=== PATIENT | female | born 1945 | race Caucasian/White ===

== ENCOUNTER → 2018-04-16 15:36 | Outpatient (CLI) | payer MEDICARE, MEDICAID, SELFPAY ==
--- NOTE | 2018-04-16 15:38 | CT_ITS ---
CT head/brain wo con HISTORY: Syncope ITS.REASON: PH SYNCOPE ORDERING PHYSICIAN: Brad Mir MD PATIENT AGE: 72 years COMPARISON: None TECHNIQUE: Axial images obtained without contrast. Brain and bone windows reviewed. All CT scans at the facility use one or more dose reduction, viz: automated exposure control, ma/kV adjustment per patient size (including targeted exams where dose is matched to indication, i.e. head), or iterative reconstruction technique. FINDINGS: There is motion artifact present despite performing the exam with helical technique. There is diffuse generalized atrophy. Encephalomalacia changes are present in the right temporal lobe and left frontal region and right parietal area. There is moderate enlargement of the lateral ventricles which may be due to volume loss from atrophy. The third and fourth ventricles are not significantly enlarged. No midline shift or mass effect is evident. No acute intracranial hemorrhage. IMPRESSION: 1. No acute finding. 2. Atrophy with ventriculomegaly and multiple areas of encephalomalacia
== END ==
PROVIDERS: PCP Internal Medicine Adolescent Medicine; Visit Provider Internal Medicine Adolescent Medicine
DX: R55 Syncope and collapse (principal)
CPT/HCPCS: 70450

== ENCOUNTER → 2020-06-16 07:46 | Outpatient (CLI) | payer MEDICARE, MEDICAID, SELFPAY ==
[2020-06-16 14:19] LABS: Chloride 109 mmol/L (98-107); Potassium 4.2 mmoL/L (3.5-5.1); Sodium 143 mmol/L (136-145)
[2020-06-16 14:21] LABS: Alanine Aminotransferase 11 U/L (12-78); Alkaline Phosphatase 91 U/L (38-126); Aspartate Amino Transferase 19 U/L (14-36); Bilirubin,Total 0.4 mg/dl (0.2-1.3); Blood Urea Nitrogen 15 mg/dl (7-17); Estimated Glomerular Filt Rate 82 ml/min (>60); GFR (African American) 99 ML/MIN (>60)
[2020-06-16 14:22] LABS: Albumin Level 3.9 g/dl (3.5-5.0); Albumin/Globulin Ratio 1.6 (1.1-1.8); Anion Gap 12.2 mEq/L (5-15); Calcium 9.6 mg/dl (8.4-10.2); Carbon Dioxide 26 mmol/L (22.0-30.0); Chol/HDL Ratio 3.6 (1-3.5); Cholesterol 173 mg/dl (140-200); Globulin 2.5 g/dL (1.3-3.2); Glucose 83 mg/dl (74-100); HDL Cholesterol 48 mg/dl (40-60); Total Protein,Serum 6.4 g/dl (6.3-8.2); Triglycerides 68 mg/dl (30-150); VLDL Cholesterol 14 mg/dL (0-40)
[2020-06-16 14:33] LABS: Direct LDL Cholesterol 101.29 mg/dL (100-129)
[2020-06-16 14:36] LABS: Basophils # 0.1 K/mm3 (0-0.2); Basophils % 0.7 % (0.1-2.0); Eosinophils # 0.2 K/mm3 (0.0-0.4); Hematocrit 40.5 % (37.0-47.0); Hemoglobin 13.1 g/dL (12.2-16.2); Lymphocytes # 2.9 K/mm3 (0.7-4.5); Lymphocytes % 38.8 % (10-50); Mean Corpuscular HGB Conc 32.3 g/dL (31.8-35.4); Mean Corpuscular Hemoglobin 31.4 pg (27.0-31.2); Mean Platelet Volume 10.3 fl (7.4-10.4); Monocytes # 0.5 K/mm3 (0.1-1.0); Monocytes % 6.5 % (1.7-9.3); Neutrophils # 3.8 K/mm3 (1.8-7.8); Neutrophils % 51.1 % (37.0-80.0); Platelet Count 198 K/mm3 (142-424); Red Blood Count 4.17 M/mm3 (4.20-5.40); Red Cell Distribution Width 13.4 % (11.5-17.5); White Blood Count 7.3 K/mm3 (4.8-10.8)
== END ==
PROVIDERS: Visit Provider Nurse Practitioner Family
DX: E78.5 Hyperlipidemia, unspecified (principal)
CPT/HCPCS: 36415; 80053; 80061; 85025

== ENCOUNTER → 2020-10-20 08:32 | Outpatient (CLI) | payer MEDICARE, MEDICAID, SELFPAY ==
[2020-10-20 10:40] LABS: Basophils # 0.1 K/mm3 (0-0.2); Basophils % 1.1 % (0.1-2.0); Eosinophils # 0.1 K/mm3 (0.0-0.4); Eosinophils % 1.6 % (0.1-12.0); Hematocrit 42.9 % (37.0-47.0); Hemoglobin 13.5 g/dL (12.2-16.2); Lymphocytes # 2.8 K/mm3 (0.7-4.5); Lymphocytes % 36.1 % (10-50); Mean Corpuscular HGB Conc 31.5 g/dL (31.8-35.4); Mean Corpuscular Hemoglobin 31.9 pg (27.0-31.2); Mean Corpuscular Volume 101.5 fl (81-99); Mean Platelet Volume 9.8 fl (7.4-10.4); Monocytes # 0.4 K/mm3 (0.1-1.0); Monocytes % 4.8 % (1.7-9.3); Neutrophils # 4.4 K/mm3 (1.8-7.8); Neutrophils % 56.4 % (37.0-80.0); Platelet Count 175 K/mm3 (142-424); Red Blood Count 4.23 M/mm3 (4.20-5.40); Red Cell Distribution Width 13.7 % (11.5-17.5); White Blood Count 7.9 K/mm3 (4.8-10.8)
[2020-10-20 11:18] LABS: Chloride 111 mmol/L (98-107); Potassium 4.4 mmoL/L (3.5-5.1); Sodium 148 mmol/L (136-145)
[2020-10-20 11:20] LABS: Alanine Aminotransferase 11 U/L (12-78); Aspartate Amino Transferase 21 U/L (14-36); Blood Urea Nitrogen 21 mg/dl (7-17); Estimated Glomerular Filt Rate 61 ml/min (>60); GFR (African American) 74 ML/MIN (>60)
[2020-10-20 11:21] LABS: Albumin Level 3.9 g/dl (3.5-5.0); Albumin/Globulin Ratio 1.4 (1.1-1.8); Alkaline Phosphatase 95 U/L (38-126); Anion Gap 12.4 mEq/L (5-15); Bilirubin,Total 0.4 mg/dl (0.2-1.3); Calcium 9.3 mg/dl (8.4-10.2); Carbon Dioxide 29 mmol/L (22.0-30.0); Chol/HDL Ratio 4.3 (1-3.5); Cholesterol 188 mg/dl (140-200); Globulin 2.8 g/dL (1.3-3.2); Glucose 73 mg/dl (74-100); HDL Cholesterol 44 mg/dl (40-60); Total Protein,Serum 6.7 g/dl (6.3-8.2); Triglycerides 104 mg/dl (30-150); VLDL Cholesterol 21 mg/dL (0-40)
[2020-10-20 11:32] LABS: Direct LDL Cholesterol 108.24 mg/dL (100-129)
== END ==
PROVIDERS: Visit Provider Nurse Practitioner Family
DX: E78.5 Hyperlipidemia, unspecified (principal)
CPT/HCPCS: 36415; 80053; 80061; 85025

== ENCOUNTER → 2020-12-14 07:22 | Outpatient (CLI) | payer MEDICARE, MEDICAID, SELFPAY ==
[2020-12-14 13:51] LABS: Basophils # 0.1 K/mm3 (0-0.2); Basophils % 0.4 % (0.1-2.0); Eosinophils # 0.1 K/mm3 (0.0-0.4); Eosinophils % 0.4 % (0.1-12.0); Hematocrit 43.2 % (37.0-47.0); Hemoglobin 13.5 g/dL (12.2-16.2); Lymphocytes # 1.3 K/mm3 (0.7-4.5); Lymphocytes % 5.7 % (10-50); Mean Corpuscular HGB Conc 31.4 g/dL (31.8-35.4); Mean Corpuscular Hemoglobin 31.8 pg (27.0-31.2); Mean Corpuscular Volume 101.4 fl (81-99); Mean Platelet Volume 10.2 fl (7.4-10.4); Monocytes # 0.8 K/mm3 (0.1-1.0); Monocytes % 3.6 % (1.7-9.3); Neutrophils # 19.9 K/mm3 (1.8-7.8); Platelet Count 229 K/mm3 (142-424); Red Blood Count 4.26 M/mm3 (4.20-5.40); Red Cell Distribution Width 14.1 % (11.5-17.5); White Blood Count 22.1 K/mm3 (4.8-10.8)
[2020-12-14 14:13] LABS: Chloride 111 mmol/L (98-107); Potassium 5.1 mmoL/L (3.5-5.1); Sodium 147 mmol/L (136-145)
[2020-12-14 14:15] LABS: Alanine Aminotransferase 31 U/L (12-78); Aspartate Amino Transferase 68 U/L (14-36); Blood Urea Nitrogen 41 mg/dl (7-17); Estimated Glomerular Filt Rate 34 ml/min (>60); GFR (African American) 41 ML/MIN (>60)
[2020-12-14 14:16] LABS: Albumin Level 3.4 g/dl (3.5-5.0); Albumin/Globulin Ratio 1.2 (1.1-1.8); Alkaline Phosphatase 99 U/L (38-126); Anion Gap 15.1 mEq/L (5-15); Bilirubin,Total 0.4 mg/dl (0.2-1.3); Calcium 9.2 mg/dl (8.4-10.2); Carbon Dioxide 26 mmol/L (22.0-30.0); Globulin 2.9 g/dL (1.3-3.2); Glucose 119 mg/dl (74-100); Hemoglobin A1C 8.2 % (4.0-6.0); MANUAL DIFFERENTIAL MANUAL DIFFERENTIAL (MANUAL DIFF); Total Protein,Serum 6.3 g/dl (6.3-8.2)
[2020-12-14 14:25] LABS: Lymphocytes % 3 % (10-50); Monocytes % 5 % (2-9); Neutrophils % 92 % (42-76); Total Cells Counted 100
[2020-12-14 14:27] LABS: Hypochromasia 2+; Macrocytosis 1+; Platelet Estimate Normal
[2020-12-15 07:34] LABS: Microscopic, Urine URINE MICROSCOPIC (MICROSCOPIC)
[2020-12-15 14:19] LABS: Appearance,Urine CLEAR (Clear); Bilirubin,Urine Negative (Negative); Blood, Urine 1+ (Negative); Color,Urine YELLOW (Yellow); Glucose,Urine (UA) Negative (Negative); Ketones,Urine Negative (Negative); Leukocyte Esterase,Urine Negative (Negative); Nitrate,Urine Negative (Negative); PH,Urine 5.5 (5.0-8.5); Protein,Urine 1+ (Negative); Specific Gravity, Urine 1.025 (1.005-1.030); Urobilinogen,Urine 0.2 EU/dl (0.2)
[2020-12-15 15:11] LABS: Bacteria,Urine 4+ /lpf
== END ==
PROVIDERS: Nurse Practitioner Family; Visit Provider Internal Medicine Adolescent Medicine
DX: D72.829 Elevated white blood cell count, unspecified (principal); R82.90 Unspecified abnormal findings in urine; Z79.899 Other long term (current) drug therapy; E78.5 Hyperlipidemia, unspecified
CPT/HCPCS: 36415; 80053; 81001; 83036; 85007; 85025; 87086

== ENCOUNTER → 2020-12-22 11:29 | Outpatient (CLI) | payer MEDICARE, MEDICAID, SELFPAY ==
[2020-12-22 12:05] LABS: Basophils # 0.1 K/mm3 (0-0.2); Basophils % 0.5 % (0.1-2.0); Eosinophils # 0.3 K/mm3 (0.0-0.4); Eosinophils % 1.3 % (0.1-12.0); Hematocrit 48.5 % (37.0-47.0); Hemoglobin 14.6 g/dL (12.2-16.2); Lymphocytes # 2.6 K/mm3 (0.7-4.5); Lymphocytes % 10.9 % (10-50); Mean Corpuscular HGB Conc 30.2 g/dL (31.8-35.4); Mean Corpuscular Hemoglobin 31.5 pg (27.0-31.2); Mean Corpuscular Volume 104.4 fl (81-99); Mean Platelet Volume 9.8 fl (7.4-10.4); Monocytes # 0.6 K/mm3 (0.1-1.0); Monocytes % 2.5 % (1.7-9.3); Neutrophils # 20.6 K/mm3 (1.8-7.8); Neutrophils % 84.8 % (37.0-80.0); Platelet Count 396 K/mm3 (142-424); Red Blood Count 4.65 M/mm3 (4.20-5.40); Red Cell Distribution Width 14.8 % (11.5-17.5); White Blood Count 24.3 K/mm3 (4.8-10.8)
[2020-12-22 12:22] LABS: MANUAL DIFFERENTIAL MANUAL DIFFERENTIAL (MANUAL DIFF)
[2020-12-22 13:12] LABS: Potassium 4.2 mmoL/L (3.5-5.1)
[2020-12-22 13:14] LABS: Blood Urea Nitrogen 46 mg/dl (7-17); Estimated Glomerular Filt Rate 29 ml/min (>60); GFR (African American) 35 ML/MIN (>60)
[2020-12-22 13:15] LABS: Alanine Aminotransferase 60 U/L (12-78); Albumin Level 3.6 g/dl (3.5-5.0); Albumin/Globulin Ratio 1.1 (1.1-1.8); Alkaline Phosphatase 125 U/L (38-126); Aspartate Amino Transferase 61 U/L (14-36); Bilirubin,Total 0.4 mg/dl (0.2-1.3); Calcium 9.4 mg/dl (8.4-10.2); Carbon Dioxide 24 mmol/L (22.0-30.0); Globulin 3.2 g/dL (1.3-3.2); Glucose 193 mg/dl (74-100); Total Protein,Serum 6.8 g/dl (6.3-8.2)
[2020-12-22 13:21] LABS: Anion Gap 17.2 mEq/L (5-15)
[2020-12-22 13:25] LABS: Chloride 137 mmol/L (98-107); Sodium 174 mmol/L (136-145)
[2020-12-22 14:06] LABS: Lymphocytes % 16 % (10-50); Monocytes % 4 % (2-9); Neutrophils % 80 % (42-76); Total Cells Counted 100
[2020-12-22 14:07] LABS: Hypochromasia 1+; Macrocytosis 2+; Platelet Estimate Normal
== END ==
PROVIDERS: Visit Provider Nurse Practitioner Family
DX: R79.9 Abnormal finding of blood chemistry, unspecified (principal)
CPT/HCPCS: 80053; 85007; 85025

== ENCOUNTER 2020-12-24 13:51 | Inpatient (IN) | payer MEDICARE, MEDICAID, SELFPAY ==
[2020-12-24] VITALS (10 sets, daily range): BP systolic 92–157; BP diastolic 47–95; PULSE 78–113; RESP 18–22; TEMP 36.7–37.5; O2SAT 91–100; BMI 24.7; BMI 19.8
--- NOTE | 2020-12-24 13:56 | HMH.EDGENADL ---
ED Disposition Clinical Impression: Hypernatremia, Acute respiratory failure with hypoxia Disposition: Admitted As Inpatient Condition on Discharge: Critical Time of Disposition: 15:13 - Critical Care Critical Care Time: Yes Attestation: On , the high probability of a clinically significant, sudden or life threatening deterioration of the following system(s) required my full and direct attention, intervention and personal management. The time I documented below is in addition to time spent performing reported procedures but includes the following listed in this critical care notation. Total Critical Care Time: 35 Vital system(s) involved:: Metabolic Failure, Renal Failure My critical care processes included: Assessment & monitoring of V/S, Initial and Re-exams, Data Review/Interpretation, Coordinating Care, Medication Orders and management, Documentation Medical Decision Making - Medical Records Medical records reviewed: Yes: I reviewed the patient's medical records. - Osvaldo Inquiry Pt receiving controlled substance: No Vital Signs: 12/24/20 13:48 Temperature 98.4 F Temperature Source Oral Pulse Rate [Left Radial] 78 Respiratory Rate 18 Blood Pressure [Right Arm] 129/74 Blood Pressure Mean [Right Arm] 92 Blood Pressure Source [Right Arm] Automatic Cuff Blood Pressure Position [Right Arm] Sitting 02 Sat by Pulse Oximetry 91 L Oxygen Delivery Method Nasal Cannula - Lab Data Lab results reviewed: Yes: I reviewed the patient's lab results. Lab Results 12/24/20 14:02: WBC 22.7 H*, RBC 4.78, Hgb 14.9, Hct 51.3 H, MCV 107.3 H, MCH 31.1, MCHC 29.0 L, RDW 14.8, Plt Count 330, MPV 10.6 H, Neut % (Auto) 87.2 H, Lymph % (Auto) 8.2 L, [place] % (Auto) 2.9, Eos % (Auto) 1.3, Baso % (Auto) 0.5, Neut # (Auto) 19.8 H, Lymph # (Auto) 1.9, [place] # (Auto) 0.7, Eos # (Auto) 0.3, Baso # (Auto) 0.1, Total Counted 100, Neutrophils % (Manual) 85 H, Band Neutrophils % 2.0, Lymphocytes % (Manual) 11, Monocytes % (Manual) 1 L, Eosinophils % (Manual) 1, Platelet Estimate Normal, Hypochromasia 2+, Microcytosis 2+ 12/24/20 14:02: Sodium 173 H*, Potassium 3.8, Chloride 135 H, Carbon Dioxide 27, Anion Gap 14.8, BUN 23 H D, Creatinine 1.10 H D, Estimated Creat Clear 42, Estimated GFR 48 L, Est GFR ( Amer) 58 L D, Glucose 131 H, Calcium 9.3, Total Bilirubin 0.5, AST 94 H D, ALT 55, Alkaline Phosphatase 127 H, Troponin I 0.08 H, Total Protein 8.0, Albumin 3.8, Globulin 4.2 H, Albumin/Globulin Ratio 0.9 L 12/24/20 14:02: NT-Pro-B Natriuret Pep 1820 H 12/24/20 14:02: Procalcitonin 0.600 Result diagrams: 12/24/20 14:02 12/24/20 14:02 Orders (Tests/Meds): ED MEDICATIONS Generic Name Dose Route Start Last Admin Trade Name Freq PRN Reason Stop Dose Admin Dextrose 1,000 mls @ 200 mls/hr 12/24/20 14:45 Dext 5% In Water 1000mls IV 01/23/21 14:44 .Q5H [facility] ORDERS Category Date Time Status Rapid PCR Covid and Flu A/B Stat Lab 12/24/20 14:20 Received Urinalysis and Microscopic Stat Lab 12/24/20 13:58 Ordered - Radiology Data #1 Image(s): Chest Image Reviewed: Yes I reviewed the patient's radiology results Preliminary Findings: Normal/NAD No significant finding on chest x-ray, limited by position. Medical Decision Narrative: 75yo F evaluated for hypoxia. Laboratory studies reveal severe hypernatremia. Initially thought to be an error but the patient had blood work completed 2 days ago that showed hyponatremia to be equivocal to today's finding. Started on D5W at 200 an hour based on her weight. Creatinine is reasonable. Glucose is 131. Patient does have a white blood cell count of 22, this could be secondary to her suspected pneumonia or inflammatory from her hyponatremia. Patient's chest x-ray is not terribly impressive. Her BNP is elevated at 1820 and her troponin is elevated as well. EKG is still pending. Case discussed with Dr. Mir who agrees to admit the patient for further management. General Adult HPI -
--- NOTE | 2020-12-24 13:58 | XR_ITS ---
PROCEDURE INFORMATION: Exam: XR Chest Exam date and time: 12/24/2020 1:58 PM Age: 75 years old Clinical indication: Shortness of breath; Patient HX: Patient's head is contracted onto her chest. I tried to raise it as much as she could tolerate which wasn't very much. Best film possible due to poor patient condition. ; Additional info: SOB TECHNIQUE: Imaging protocol: XR of the chest. Views: 1 view. COMPARISON: No relevant prior studies available. FINDINGS: Tubes, catheters and devices: There are sternal wires consistent with previous sternotomy incision. Lungs: Atelectatic changes noted within both lung bases. Pleural spaces: There are no pleural effusions present. Heart/Mediastinum: Unremarkable. No cardiomegaly. Vasculature: The vasculature demonstrates diffuse moderate atherosclerotic calcification. Bones/joints: Scoliotic curvature of the thoracic spine Other findings: Study is limited due to positioning. IMPRESSION: 1. Study is limited due to positioning. Follow-up examination is recommended if symptoms persist. 2. Atelectatic changes noted within both lung bases.
[2020-12-24 14:14] LABS: Basophils # 0.1 K/mm3 (0-0.2); Basophils % 0.5 % (0.1-2.0); Eosinophils # 0.3 K/mm3 (0.0-0.4); Eosinophils % 1.3 % (0.1-12.0); Hematocrit 51.3 % (37.0-47.0); Hemoglobin 14.9 g/dL (12.2-16.2); Lymphocytes # 1.9 K/mm3 (0.7-4.5); Lymphocytes % 8.2 % (10-50); Mean Corpuscular Hemoglobin 31.1 pg (27.0-31.2); Mean Corpuscular Volume 107.3 fl (81-99); Mean Platelet Volume 10.6 fl (7.4-10.4); Monocytes # 0.7 K/mm3 (0.1-1.0); Monocytes % 2.9 % (1.7-9.3); Neutrophils # 19.8 K/mm3 (1.8-7.8); Neutrophils % 87.2 % (37.0-80.0); Platelet Count 330 K/mm3 (142-424); Red Blood Count 4.78 M/mm3 (4.20-5.40); Red Cell Distribution Width 14.8 % (11.5-17.5); White Blood Count 22.7 K/mm3 (4.8-10.8)
[2020-12-24 14:18] LABS: MANUAL DIFFERENTIAL MANUAL DIFFERENTIAL (MANUAL DIFF)
[2020-12-24 14:21] LABS: Alanine Aminotransferase 55 U/L (12-78); Albumin Level 3.8 g/dl (3.5-5.0); Albumin/Globulin Ratio 0.9 (1.1-1.8); Alkaline Phosphatase 127 U/L (38-126); Anion Gap 14.8 mEq/L (5-15); Aspartate Amino Transferase 94 U/L (14-36); Bilirubin,Total 0.5 mg/dl (0.2-1.3); Blood Urea Nitrogen 23 mg/dl (7-17); Calcium 9.3 mg/dl (8.4-10.2); Carbon Dioxide 27 mmol/L (22.0-30.0); Creatinine Clearance Estimated 42 mL/min (50-200); Estimated Glomerular Filt Rate 48 ml/min (>60); GFR (African American) 58 ML/MIN (>60); Globulin 4.2 g/dL (1.3-3.2); Glucose 131 mg/dl (74-100); Potassium 3.8 mmoL/L (3.5-5.1)
[2020-12-24 14:25] LABS: Chloride 135 mmol/L (98-107); Sodium 173 mmol/L (136-145)
--- NOTE | 2020-12-24 14:25 | PC.NURSE ---
Spoke with Pati in the lab about critical results. Sodium 173, Chloride 135. Repeated and verified and notified
[2020-12-24 14:28] LABS: Coronavirus 19, PCR Not Detected (NotDetected); Influenza A, PCR Not Detected (NotDetected); Influenza B, PCR Not Detected (NotDetected)
[2020-12-24 14:30] LABS: NT Pro Brain Natriuretic Pep. 1820 pg/mL (0-450)
[2020-12-24 14:33] LABS: Troponin I 0.08 ng/ml (0.00-0.034)
[2020-12-24 14:39] LABS: Eosinophils % 1 % (0-3); Lymphocytes % 11 % (10-50); Microcytosis 2+; Monocytes % 1 % (2-9); Neutrophils % 85 % (42-76); Platelet Estimate Normal; Total Cells Counted 100
[2020-12-24 14:40] LABS: Hypochromasia 2+
--- NOTE | 2020-12-24 15:05 | PC.NURSE ---
speaking with Dr Mir
--- NOTE | 2020-12-24 15:21 | ECG_ITS ---
APPROVED REPORT Exam: Resting ECG HR:107 bpm ECG Measurements Heart Rate 107 AXES FL 124 P 36 QRSd 116 QRS 49 QT 442 T 262 QTc 590 Conclusion Sinus tachycardia with occasional and consecutive premature ventricular complexes and fusion complexes Incomplete right bundle branch block ST & T wave abnormality, consider inferior ischemia ST & T wave abnormality, consider anterior ischemia Abnormal ECG Electronically signed by : Brad Mir MD 12/25/2020 14:26:13
--- NOTE | 2020-12-24 15:33 | PC.NURSE ---
JESU HAND ORNAMENT MAKER HERE TO SEE PT
--- NOTE | 2020-12-24 16:09 | PC.NURSE ---
Notified house of admission
[2020-12-24 17:43] LABS: Microscopic, Urine URINE MICROSCOPIC (MICROSCOPIC)
[2020-12-24 17:45] LABS: Appearance,Urine CLEAR (Clear); Bilirubin,Urine Negative (Negative); Blood, Urine 1+ (Negative); Color,Urine YELLOW (Yellow); Glucose,Urine (UA) Negative (Negative); Ketones,Urine Negative (Negative); Leukocyte Esterase,Urine Negative (Negative); Nitrate,Urine Negative (Negative); PH,Urine 5.5 (5.0-8.5); Protein,Urine Negative (Negative); Urobilinogen,Urine 0.2 EU/dl (0.2)
[2020-12-24 17:55] LABS: Bacteria,Urine Trace /lpf; WBC,Urine Occasional #/hpf (0-3)
--- NOTE | 2020-12-24 18:47 | PC.NURSE ---
Pt arrived to the floor via stretcher accompanied by myself and JONATHAN Higgins. Pt does attempt to follow commands. Fur Cutter are unequal. Left side is severely weak and contracted, excellent hide mill worker to right hand. When asked name pt mumbles incoherently. Lungs with rhonchi, pt placed on NRB upon arrival to floor for low O2 sats (70's). She has since been weaned to 6L NC with O2 sats in the mid 90's. Colostomy noted to left lower abd. Some solid stool in ostomy bag noted. Moran placed upon arrival to floor as well. It is to bedside draining clear, yellow urine. Some faint mottling noted to ble. Per papers sent from shelter pt is a full code, a total care and feeder. Pt is currently resting in bed w/her eyes closed.
--- NOTE | 2020-12-24 19:06 | HMH.HP ---
*Admission Date: 12/24/20 *Chief complaint: hypernatremia, pneumonia failed outpatient treatment *History of present illness: 75 year old female with long history of schizophrenia, Alzheimer's disease, colon cancer s/p resection with colostomy, diabetes and CAD was transferred from [facility] for evaluation of hypoxia. Patient treated for LLE pneumonia last week, WBC 22, with Rocephin and Azithromycin. Patient with poor oral intake and increased confusion since that time. Labs on 12/22 showed WBC 24, NA 170's, Chloride 130's. She was started on Invanz and IVF's. Today, she developed worsening shortness of breath with hypoxia, saturations around 80% on RA. She was transferred to [facility] ED where she was found to have persist hypernatremia. CXR unremarkable, BMP 1800's. She is a FULL CODE which was clarified by [facility] with daughter Shelia earlier this week. Both of her daughter's are listed as POA; however apparently the other is incarcerated. [facility] for IV hydration, abx and further evaluation. [facility] History I have reviewed the patient's past medical history: Yes Medical History: Reports:: Atherosclerotic Heart Disease, Cancer (LARGE INTESTINE), Diabetes Mellitus Type 2, Hyperlipidemia, Myocardial Infarction *Have you ever received a pneumonia vaccine?: Yes *Have you received a flu vaccine this season?: Yes Other Surgeries: Yes: Hysterectomy-Total, Other - *Social History Smoking Status: Unknown if ever smoked Alcohol Intake: never *Occupational Status:: disabled Housing: skilled nursing *Travel in the last 8 weeks: None Family Hx:: Unable to obtain Review of Systems - Review of Systems Review of systems:: pertinent systems reviewed and negative unless documented below - Constitutional Reports fatigue, Reports malaise, Reports weakness, Reports weight loss - *Respiratory Reports cough - *Gastrointestinal Comments: colostomy - *Genitourinary Reports urinary incontinence - *Neurologic Reports confusion, Reports memory loss Meds Home Medications Medication Instructions Recorded Confirmed Type Acetaminophen [Tylenol Extra 500 mg PO BID 12/24/20 12/24/20 History Strength] Aspirin [Aspirin 81mg EC Tab] 81 mg PO DAILY 12/24/20 12/24/20 History Donepezil HCl [Aricept 10mg 10 mg PO HS 12/24/20 12/24/20 History tablet] Ertapenem Sodium [Invanz 1gm Vial] 0 gm IV DAILY 12/24/20 12/24/20 History Famotidine [Pepcid 20mg Tablet] 20 mg PO DAILY 12/24/20 12/24/20 History Hyoscyamine Sulfate 0.125 mg PO BID 12/24/20 12/24/20 History Linagliptin [Tradjenta 5mg tablet] 5 mg PO DAILY 12/24/20 12/24/20 History Loratadine [Claritin 10mg 10 mg PO DAILY 12/24/20 12/24/20 History Tablet] Memantine HCl [Namenda 10mg 10 mg PO DAILY 12/24/20 12/24/20 History Tablet] Simvastatin [Zocor 40mg] 40 mg PO HS 12/24/20 12/24/20 History ondansetron HCL [Zofran 4mg Tab*] 4 mg PO DAILYP PRN 12/24/20 12/24/20 History polyethylene glycoL 3350 [Miralax 17 gm PO NEEDED PRN 12/24/20 12/24/20 History Powder] Allergies Allergy/AdvReac Type Severity Reaction Status Date / Time No Known Allergies Allergy Verified 12/24/20 14:55 Exam Vital signs and Labs for Last 24 Hours: Temp Pulse Resp BP Pulse Ox 99.5 F 99 H 22 109/62 L 94 L 12/24/20 17:31 12/24/20 18:00 12/24/20 18:00 12/24/20 18:00 12/24/20 18:00 Laboratory Results - last 24 hr 12/24/20 14:02: WBC 22.7 H*, RBC 4.78, Hgb 14.9, Hct 51.3 H, MCV 107.3 H, MCH 31.1, MCHC 29.0 L, RDW 14.8, Plt Count 330, MPV 10.6 H, Neut % (Auto) 87.2 H, Lymph % (Auto) 8.2 L, [place] % (Auto) 2.9, Eos % (Auto) 1.3, Baso % (Auto) 0.5, Neut # (Auto) 19.8 H, Lymph # (Auto) 1.9, [place] # (Auto) 0.7, Eos # (Auto) 0.3, Baso # (Auto) 0.1, Total Counted 100, Neutrophils % (Manual) 85 H, Band Neutrophils % 2.0, Lymphocytes % (Manual) 11, Monocytes % (Manual) 1 L, Eosinophils % (Manual) 1, Platelet Estimate Normal, Hypochromasia 2+, Microcytosis 2+
[2020-12-24 19:11] LABS: Troponin I 0.07 ng/ml (0.00-0.034)
[2020-12-24 19:17] LABS: Potassium 3.4 mmoL/L (3.5-5.1)
[2020-12-24 19:19] LABS: Blood Urea Nitrogen 23 mg/dl (7-17); Creatinine Clearance Estimated 34 mL/min (50-200); Estimated Glomerular Filt Rate 48 ml/min (>60); GFR (African American) 58 ML/MIN (>60)
[2020-12-24 19:20] LABS: Anion Gap 10.4 mEq/L (5-15); Calcium 8.4 mg/dl (8.4-10.2); Carbon Dioxide 27 mmol/L (22.0-30.0); Glucose 143 mg/dl (74-100)
[2020-12-24 20:10] LABS: Chloride 135 mmol/L (98-107); Sodium 169 mmol/L (136-145)
[2020-12-24 21:28] LABS: POC Glucose,Bedside 183 (70-110)
[2020-12-25] VITALS (12 sets, daily range): BP systolic 98–132; BP diastolic 35–69; PULSE 69–103; RESP 17–20; TEMP 36.9–37.5; O2SAT 92–100; BMI 19.9; BMI 19.8
[2020-12-25 05:31] LABS: Basophils # 0.1 K/mm3 (0-0.2); Basophils % 0.4 % (0.1-2.0); Eosinophils # 0.3 K/mm3 (0.0-0.4); Eosinophils % 1.7 % (0.1-12.0); Hematocrit 34.2 % (37.0-47.0); Lymphocytes # 1.7 K/mm3 (0.7-4.5); Lymphocytes % 10.9 % (10-50); Mean Corpuscular HGB Conc 29.9 g/dL (31.8-35.4); Mean Corpuscular Hemoglobin 31.2 pg (27.0-31.2); Mean Corpuscular Volume 104.5 fl (81-99); Mean Platelet Volume 10.5 fl (7.4-10.4); Monocytes # 0.6 K/mm3 (0.1-1.0); Monocytes % 3.6 % (1.7-9.3); Neutrophils % 83.4 % (37.0-80.0); Platelet Count 212 K/mm3 (142-424); Red Blood Count 3.27 M/mm3 (4.20-5.40); Red Cell Distribution Width 14.8 % (11.5-17.5); White Blood Count 15.6 K/mm3 (4.8-10.8)
[2020-12-25 05:36] LABS: Chloride 124 mmol/L (98-107); Potassium 3.3 mmoL/L (3.5-5.1)
[2020-12-25 05:39] LABS: Alanine Aminotransferase 34 U/L (12-78); Albumin Level 2.3 g/dl (3.5-5.0); Alkaline Phosphatase 78 U/L (38-126); Anion Gap 10.3 mEq/L (5-15); Aspartate Amino Transferase 64 U/L (14-36); Bilirubin,Total 0.2 mg/dl (0.2-1.3); Blood Urea Nitrogen 19 mg/dl (7-17); Calcium 7.8 mg/dl (8.4-10.2); Carbon Dioxide 27 mmol/L (22.0-30.0); Creatinine Clearance Estimated 37 mL/min (50-200); Estimated Glomerular Filt Rate 70 ml/min (>60); GFR (African American) 84 ML/MIN (>60); Globulin 2.3 g/dL (1.3-3.2); Glucose 132 mg/dl (74-100); MANUAL DIFFERENTIAL MANUAL DIFFERENTIAL (MANUAL DIFF); Total Protein,Serum 4.6 g/dl (6.3-8.2)
--- NOTE | 2020-12-25 05:42 | PC.NURSE ---
Patient had an uneventful night this shift. no s/s of acute distress noted, call light within reach, bed at lowest level for safety; will continue to monitor.
[2020-12-25 05:43] LABS: Sodium 158 mmol/L (136-145)
--- NOTE | 2020-12-25 05:45 | PC.NURSE ---
Received call from Lab of Critical Na+ 154; provider notified.
[2020-12-25 05:47] LABS: Hemoglobin 10.3 g/dL (12.2-16.2)
[2020-12-25 06:11] LABS: Eosinophils % 4 % (0-3); Lymphocytes % 15 % (10-50); Monocytes % 1 % (2-9); Neutrophils % 80 % (42-76); Total Cells Counted 100
[2020-12-25 06:12] LABS: Platelet Estimate Normal; RBC Morphology Normal
[2020-12-25 06:31] LABS: POC Glucose,Bedside 134 (70-110)
--- NOTE | 2020-12-25 06:41 | HMH.ACPN2 ---
Internal Medicine - PN: Subj *Date: 12/25/20 *Time: 11:10 Interval history: Patient appears comfortable this morning. No acute distress. Supplemental O2 decreased on rounds. NPO this morning due to aspiration risk. Afebrile. Cooperative on exam. Reviewed labs, sodium correcting at an appropriate rate. Exam Vital signs and Labs for Last 24 Hours: Temp Pulse Resp BP Pulse Ox 98.7 F 86 18 116/35 L 97 12/25/20 06:00 12/25/20 06:00 12/25/20 06:00 12/25/20 06:00 12/25/20 06:00 Laboratory Results - last 24 hr 12/24/20 14:02: WBC 22.7 H*, RBC 4.78, Hgb 14.9, Hct 51.3 H, MCV 107.3 H, MCH 31.1, MCHC 29.0 L, RDW 14.8, Plt Count 330, MPV 10.6 H, Neut % (Auto) 87.2 H, Lymph % (Auto) 8.2 L, [place] % (Auto) 2.9, Eos % (Auto) 1.3, Baso % (Auto) 0.5, Neut # (Auto) 19.8 H, Lymph # (Auto) 1.9, [place] # (Auto) 0.7, Eos # (Auto) 0.3, Baso # (Auto) 0.1, Total Counted 100, Neutrophils % (Manual) 85 H, Band Neutrophils % 2.0, Lymphocytes % (Manual) 11, Monocytes % (Manual) 1 L, Eosinophils % (Manual) 1, Platelet Estimate Normal, Hypochromasia 2+, Microcytosis 2+ 12/24/20 14:02: Sodium 173 H*, Potassium 3.8, Chloride 135 H, Carbon Dioxide 27, Anion Gap 14.8, BUN 23 H D, Creatinine 1.10 H D, Estimated Creat Clear 42, Estimated GFR 48 L, Est GFR ( Amer) 58 L D, Glucose 131 H, Calcium 9.3, Total Bilirubin 0.5, AST 94 H D, ALT 55, Alkaline Phosphatase 127 H, Troponin I 0.08 H, Total Protein 8.0, Albumin 3.8, Globulin 4.2 H, Albumin/Globulin Ratio 0.9 L 12/24/20 14:02: NT-Pro-B Natriuret Pep 1820 H 10/28/21 14:02: Procalcitonin 0.600 12/24/20 14:20: SARS-CoV-2 (PCR) Not detected, Influenza A Untype (PCR) Not detected, Influenza Type B (PCR) Not detected 12/24/20 17:35: Urine Color Yellow, Urine Appearance Clear, Urine pH 5.5, Ur Specific [place] 1.020, Urine Protein Negative, Urine Glucose (UA) Negative, Urine Ketones Negative, Urine Blood 1+, Urine Nitrate Negative, Urine Bilirubin Negative, Urine Urobilinogen 0.2, Ur Leukocyte Esterase Negative, Urine RBC None, Urine WBC Occasional, Ur Squamous Epith Cells 3-5, Urine Bacteria Trace 12/24/20 18:15: Troponin I 0.07 H 12/24/20 18:15: Sodium 169 H*, Potassium 3.4 L, Chloride 135 H, Carbon Dioxide 27, Anion Gap 10.4, BUN 23 H, Creatinine 1.10 H, Estimated Creat Clear 34, Estimated GFR 48 L, Est GFR ( Amer) 58 L, Glucose 143 H, Calcium 8.4 12/24/20 20:52: POC Glucose 183 H 12/25/20 04:28: WBC 15.6 H D, RBC 3.27 L D, Hgb 10.3 L D, Hct 34.2 L, MCV 104.5 H, MCH 31.2, MCHC 29.9 L, RDW 14.8, Plt Count 212 D, MPV 10.5 H, Neut % (Auto) 83.4 H, Lymph % (Auto) 10.9, [place] % (Auto) 3.6, Eos % (Auto) 1.7, Baso % (Auto) 0.4, Neut # (Auto) 13.0 H, Lymph # (Auto) 1.7, [place] # (Auto) 0.6, Eos # (Auto) 0.3, Baso # (Auto) 0.1, Total Counted 100, Neutrophils % (Manual) 80 H, Lymphocytes % (Manual) 15, Monocytes % (Manual) 1 L, Eosinophils % (Manual) 4 H, Platelet Estimate Normal, RBC Morphology Normal 12/25/20 04:28: Sodium 158 H*, Potassium 3.3 L, Chloride 124 H, Carbon Dioxide 27, Anion Gap 10.3, BUN 19 H, Creatinine 0.80 D, Estimated Creat Clear 37, Estimated GFR 70, Est GFR ( Amer) 84 D, Glucose 132 H, Calcium 7.8 L, Total Bilirubin 0.2, AST 64 H D, ALT 34 D, Alkaline Phosphatase 78, Total Protein 4.6 L D, Albumin 2.3 L D, Globulin 2.3, Albumin/Globulin Ratio 1.0 L 12/25/20 05:40: POC Glucose 134 H I & O for Last 24 hours: Intake & Output 12/22/20 12/23/20 12/24/20 12/25/20 23:59 23:59 23:59 23:59 Output Total 600 / 600 Balance -600 / -600 Weight 49.215 kg 49.215 kg - Constitutional no acute distress Comments: confused, somewhat follow commands - *Routine HEENT Exam Head: Present: normocephalic Eye: Present: EOMI, PERRL ENT: Present: mucous membranes moist Comments: arcus senilius, periorbital and temporal fat loss - *Routine Neck Exam Present: supple. Absent: lymphadenopathy - *Routine Respiratory Exam Present: CTA bilaterally, rhonchi. Absent: wheezes, crackles Comment
--- NOTE | 2020-12-25 07:53 | HMH.PHAVTE ---
[facility] Pharmacy VTE Monitoring - Patient Demographics Admission date: 12/24/20 Report Date: 12/25/20 Time: 07:53 Allergies/Adverse Reactions: Patient Allergies No Known Allergies Allergy (Verified 12/24/20 14:55) Height: 1.57 m Weight: 49.215 kg Patient Problems: Current Active Problems Hypernatremia (Acute) Acute respiratory failure with hypoxia (Acute) HCAP (healthcare-associated pneumonia) (Acute) Alzheimer disease (Chronic) Schizophrenia (Chronic) Type 2 diabetes mellitus (Acute) - VTE Risk Labs: VTE Related Lab Results Hgb 10.3 g/dL (12.2-16.2) L D 12/25/20 04:28 Hct 34.2 % (37.0-47.0) L 12/25/20 04:28 Plt Count 212 K/mm3 (142-424) D 12/25/20 04:28 BUN 19 mg/dl (7-17) H 12/25/20 04:28 Creatinine 0.80 mg/dl (0.52-1.04) D 12/25/20 04:28 Estimated Creat Clear 37 mL/min (50-200) 12/25/20 04:28 Was VTE Risk Assessment Performed: Yes VTE Score: 8 VTE Risk Level: Moderate Risk - Prophylaxis VTE Prophylaxis Ordered?: Yes Types of VTE Prophylaxis: TEDS Knee High, Pharmacological Location of Applied Device: Bilateral Lower Extremeties Pharmacologic Type: Enoxaparin
--- NOTE | 2020-12-25 08:21 | HMH.PHAINT ---
MEDICATION RECONCILIATION COMPLETED ON PATIENT USING MAR FROM [facility]. -GILMA JOHNSON, DUANED
--- NOTE | 2020-12-25 09:27 | XR_ITS ---
PROCEDURE: XR CHEST PORTABLE CLINICAL HISTORY: PNM COMPARISON: CR XR CHEST PORTABLE from 12/24/2020 FINDINGS: The cardiomediastinal silhouette and pulmonary vascularity are within normal limits. There are sternal wire sutures and surgical clips seen likely from previous CABG. The current exam is better positioned than yesterday's study and the lung marin appear clear of infiltrate. There is no significant basilar atelectasis. There are mild degenerate changes of both shoulders. IMPRESSION: No acute findings. Dictated by: Dr. Magdy Van MD 12/25/2020 10:06 Dr. Magdy Van MD in [facility] 12/25/2020 10:06
--- NOTE | 2020-12-25 09:46 | HMH.SLDYSPHA ---
Speech & Language Evaluation Speech/Language Dysphagia Evaluation Start: 12/25/20 09:38 Freq: ONCE Status: Active Protocol: Document 12/25/20 09:38 KASSI (Rec: 12/25/20 09:46 KASSI [id number]) Dysphagia Assess/Goals/Plan Assessment Date of Evaluation: 12/25/20 Evaluation Type Initial Certification Assessment/Problems dysphagia Does Patient Qualify for Service No Qualify/Failure Comment Diet modifications made. Due to difficulty following directions and Alzheimer's, patient is not a candidate for therapy. Recommendations PHYSICIAN CERTIFICATION: The specified therapy services are required, authorized, and reviewed every 30 days. Diet Recommendations Pureed Liquid Type Recommendations Honey Consistency SL Swallow Guidelines Assist w/all meals,Standard Aspiration Prec. Crush Meds Crush all meds Dysphagia Swallow Precautions/Strategies Sitting Upright (90 deg), Liquids from Spoon,Small Bites and Sips,Alternate Liquids/ Solids Plan Pt/Guardian verbally ack understanding Yes: RN notified of dx/prognosis/goals G -code Required No General Information General Current Food Consistancy Pureed,[place] Liquids Dentition Edentulous Oxygen Status Nasal Cannula Ability to Follow Directions Poor Communication Ability Severe Impairment Dysphagia:Food Presentation Evaluation Food Type Pureed,Liquid,Pudding [place] Consistency Liquid Response Falls out of mouth,Pushed out of mouth,Pocketing,Clears throat Dysphagia Evaluation Summary Ms. Moore was given the following consistencies: nectar via spoon, honey via spoon, pudding, and pureed. Ms Maria Isabel Moore exhibited the following signs of dysphagia were noted: bolus falls from mouth, bolus pushed out of mouth, and throat clearing with nectar consistency. She requires downward pressure on her tongue with spoon to initiate the swallow. She is unable to follow directions due to Alzheimer's so therapy is not recommended. Stroke Dysphagia Assessment
--- NOTE | 2020-12-25 11:06 | HMH.PULMCON ---
*Admission Date: 12/24/20 *Reason for consult:: Hypernatremia, acute hypoxic respiratory failure *History of present illness: Ms. Moore is a 75-year-old female resident of [facility], history of schizophrenia Alzheimer's disease colon cancer status post resection, diameter diabetes mellitus and CAD was transferred to the retirement respiratory distress and hyponatremia and pulmonary was called for further management. [facility] History Medical History: Reports:: Atherosclerotic Heart Disease, Cancer (LARGE INTESTINE), Diabetes Mellitus Type 2, Hyperlipidemia, Myocardial Infarction *Have you ever received a pneumonia vaccine?: Yes *Have you received a flu vaccine this season?: Yes Other Surgeries: Yes: Hysterectomy-Total, Other - *Social History Smoking Status: Unknown if ever smoked Alcohol Intake: never *Occupational Status:: disabled Housing: retirement *Travel in the last 8 weeks: None Family Hx:: Unable to obtain ROS - Review of Systems Review of systems unable to obtain as patient not responding appropriately verbal questions Meds Home Medications Medication Instructions Recorded Confirmed Type Acetaminophen [Tylenol Extra 1,000 mg PO BID 12/24/20 12/25/20 History Strength] Donepezil HCl [Aricept 10mg 10 mg PO HS 12/24/20 12/24/20 History tablet] Ertapenem Sodium [Invanz 1gm Vial] 1 gm IM DAILY 12/24/20 12/25/20 History Famotidine [Pepcid 20mg Tablet] 20 mg PO DAILY 12/24/20 12/24/20 History Hyoscyamine Sulfate 0.125 mg PO BID 12/24/20 12/24/20 History Linagliptin [Tradjenta 5mg tablet] 5 mg PO DAILY 12/24/20 12/24/20 History Loratadine [Claritin 10mg 10 mg PO DAILY 12/24/20 12/24/20 History Tablet] Memantine HCl [Namenda 10mg 10 mg PO DAILY 12/24/20 12/24/20 History Tablet] Simvastatin [Zocor 40mg] 40 mg PO HS 12/24/20 12/24/20 History ondansetron HCL [Zofran 4mg Tab*] 4 mg PO Q8HP PRN 12/24/20 12/25/20 History polyethylene glycoL 3350 [Miralax 17 gm PO DAILYP PRN 12/24/20 12/25/20 History Powder] Aspirin [Aspirin 81mg chewable 81 mg PO DAILY 12/25/20 12/25/20 History tab] Allergies Allergy/AdvReac Type Severity Reaction Status Date / Time No Known Allergies Allergy Verified 12/24/20 14:55 Exam - Constitutional Constitutional:: Present: no acute distress, comfortable - HENMT Exam HENMT: Present: normocephalic - Eye Exam Eyes:: Present: normal appearance both eyes and related structures - Neck Exam Neck:: Present: normal visual inspection - Respiratory Exam Respiratory:: Present: no respiratory distress, crackles, rhonchi - Cardiovascular Exam Cardiac:: Present: S1, S2 - GI Exam GI:: Present: soft - Skin Exam Skin: Present: warm - Neurological Exam Neurological: Present: awake. Absent: alert, normal cognition - Extremities Exam Extremities: Present: no cyanosis, no clubbing, no edema Internal Medicine - CN: Reslt - Labs CBC & Chem 7: 12/25/20 04:28 12/25/20 04:28 Labs: Short CBC 12/24/20 12/25/20 Range/Units 14:02 04:28 WBC 22.7 H* 15.6 H D (4.8-10.8) K/mm3 Hgb 14.9 10.3 L D (12.2-16.2) g/dL Hct 51.3 H 34.2 L (37.0-47.0) % Plt Count 330 212 D (142-424) K/mm3 BMP 12/24/20 12/24/20 12/25/20 14:02 18:15 04:28 Sodium 173 H* 169 H* 158 H* Potassium 3.8 3.4 L 3.3 L Chloride 135 H 135 H 124 H Carbon Dioxide 27 27 27 BUN 23 H D 23 H 19 H Creatinine 1.10 H D 1.10 H 0.80 D Glucose 131 H 143 H 132 H Calcium 9.3 8.4 7.8 L Cardiac Enzymes 12/24/20 12/24/20 Range/Units 14:02 18:15 Troponin I 0.08 H 0.07 H (0.00-0.034) ng/ml Liver Function 12/24/20 12/25/20 Range/Units 14:02 04:28 Total Bilirubin 0.5 0.2 (0.2-1.3) mg/dl AST 94 H D 64 H D (14-36) U/L ALT 55 34 D (12-78) U/L Alkaline Phosphatase 127 H 78 (38-126) U/L Albumin 3.8 2.3 L D (3.5-5.0) g/dl Urine 12/24/ Range/Units 17:35 Urin
[2020-12-25 11:25] LABS: POC Glucose,Bedside 94 (70-110)
[2020-12-25 12:35] LABS: Chloride 120 mmol/L (98-107)
[2020-12-25 12:37] LABS: Blood Urea Nitrogen 19 mg/dl (7-17); Creatinine Clearance Estimated 37 mL/min (50-200); Estimated Glomerular Filt Rate 54 ml/min (>60); GFR (African American) 65 ML/MIN (>60)
[2020-12-25 12:38] LABS: Calcium 7.8 mg/dl (8.4-10.2); Carbon Dioxide 27 mmol/L (22.0-30.0); Glucose 92 mg/dl (74-100)
[2020-12-25 12:55] LABS: Sodium 154 mmol/L (136-145)
--- NOTE | 2020-12-25 13:29 | SW/DCPLANNER ---
Addendum entered by Chanell Guadarrama 12/28/20 09:07: This patient currently resides at [facility] level of care. I spoke with Angy from [facility] [place] this AM to inform her the plan for this patient is to return to [facility] [place] today with Hospice to evaluate once she returns. Patients family has been updated regarding discharge plans. Angy with [facility] [place] has stated that no further COVID testing is needed. Original Note: This patient currently resides at [facility] [place]. I have attempted to contact Angy at : no answer/VM left.
--- NOTE | 2020-12-25 15:34 | PC.NURSE ---
PT IS RESTING IN BED. PT HAS BEEN NONVERBAL BUT WAS ABLE TO FOLLOW COMMANDS DURING MORNING ASSESSMENT. LUNG SOUNDS HAVE SCATTERED RHONCHI. SPEECH EVALUATED AND DECIDED IT WOULD BE BETTER FOR PT TO HAVE HONEY THICK LIQUIDS INSTEAD OF NECTAR. PT HAS TAKEN A FEW SIPS OF HONEY THICK WATER T/O THE SHIFT. TURNED AND REPOSITIONED IN BED. ABDOMEN SOFT/NON TENDER WITH HYPOACTIVE BOWEL SOUNDS .COLOSTOMY WITH FORMED STOOL NOTED. PT IS VERY ILL APPEARING. WILL CONTINUE TO MONITOR.
--- NOTE | 2020-12-25 16:21 | DIET.NUTRFU ---
Nutritional assessment, IP/consult completed. Nutritional assessment completed to best of ability dt pt being nonverbal and lack or previous records, she does have some moderate s/s malnutrtion. Will continue to assess t/o stay. SHUTTLE INSPECTOR saw pt and recommends pureed diet with honey thickened liquids, pt kept NPO at this time dt aspiration risk rt AMS. Will monitor to meet nutritional needs, add supplementation as indicated.
[2020-12-25 18:58] LABS: Anion Gap 9.6 mEq/L (5-15); Blood Urea Nitrogen 19 mg/dl (7-17); Calcium 8.3 mg/dl (8.4-10.2); Carbon Dioxide 27 mmol/L (22.0-30.0); Chloride 120 mmol/L (98-107); Creatinine Clearance Estimated 37 mL/min (50-200); Estimated Glomerular Filt Rate 54 ml/min (>60); GFR (African American) 65 ML/MIN (>60); Glucose 103 mg/dl (74-100); Potassium 3.6 mmoL/L (3.5-5.1)
[2020-12-25 19:04] LABS: Sodium 153 mmol/L (136-145)
[2020-12-25 19:56] LABS: POC Glucose,Bedside 74 (70-110)
[2020-12-25 20:42] LABS: POC Glucose,Bedside 97 (70-110)
[2020-12-26] VITALS: BP 125/72; PULSE 77; PULSE 97; RESP 18; TEMP 37; O2SAT 90
[2020-12-26 04:00] VITALS: BP 108/69; PULSE 97; PULSE 99; RESP 20; TEMP 37.9; O2SAT 91
[2020-12-26 05:00] VITALS: BMI 21.0
[2020-12-26 05:42] LABS: Basophils # 0.1 K/mm3 (0-0.2); Basophils % 0.6 % (0.1-2.0); Eosinophils # 0.3 K/mm3 (0.0-0.4); Eosinophils % 1.9 % (0.1-12.0); Lymphocytes # 2.1 K/mm3 (0.7-4.5); Lymphocytes % 14.4 % (10-50); Mean Corpuscular HGB Conc 30.7 g/dL (31.8-35.4); Mean Corpuscular Hemoglobin 31.7 pg (27.0-31.2); Mean Corpuscular Volume 103.1 fl (81-99); Mean Platelet Volume 10.7 fl (7.4-10.4); Monocytes # 0.5 K/mm3 (0.1-1.0); Neutrophils # 11.8 K/mm3 (1.8-7.8); Platelet Count 223 K/mm3 (142-424); Red Blood Count 3.49 M/mm3 (4.20-5.40); Red Cell Distribution Width 14.7 % (11.5-17.5); White Blood Count 14.8 K/mm3 (4.8-10.8)
--- NOTE | 2020-12-26 05:46 | PC.NURSE ---
pt restless most of shift, pt with rattling/loose, frequent, nonproductive cough, pt's VSS until 0530 when pt's oxygen saturations dropped to low 80's on room air and unable to get pleth on monitor after replacing several sat probes, stopped IVF and applied 4LNC and oxygen saturations increased to 90-92%, pt's fsbs 70 at 0600 and had pt drink thickened orange juice as pt hadn't had much to eat or drink this shift
[2020-12-26 05:54] LABS: Alanine Aminotransferase 42 U/L (12-78); Albumin Level 2.8 g/dl (3.5-5.0); Albumin/Globulin Ratio 0.9 (1.1-1.8); Alkaline Phosphatase 101 U/L (38-126); Anion Gap 8.8 mEq/L (5-15); Aspartate Amino Transferase 88 U/L (14-36); Bilirubin,Total 0.3 mg/dl (0.2-1.3); Blood Urea Nitrogen 16 mg/dl (7-17); Calcium 8.4 mg/dl (8.4-10.2); Carbon Dioxide 26 mmol/L (22.0-30.0); Chloride 120 mmol/L (98-107); Creatinine Clearance Estimated 39 mL/min (50-200); Estimated Glomerular Filt Rate 70 ml/min (>60); GFR (African American) 84 ML/MIN (>60); Globulin 3.1 g/dL (1.3-3.2); Glucose 89 mg/dl (74-100); Potassium 3.8 mmoL/L (3.5-5.1); Total Protein,Serum 5.9 g/dl (6.3-8.2)
[2020-12-26 06:04] LABS: Sodium 151 mmol/L (136-145)
[2020-12-26 08:00] VITALS: BP 127/73; PULSE 95; RESP 21; TEMP 37.4; O2SAT 98; O2SAT 99
--- NOTE | 2020-12-26 08:56 | HMH.ACPN2 ---
Internal Medicine - PN: Subj *Date: 12/26/20 *Time: 08:56 Interval history: Patient is more alert this morning, remains nonverbal which is close to her baseline at the snf. Is able to swallow very minimal amounts of her pur?ed diet. Is responsive to commands and occasional shake her head yes or no in response to questions. Exam Vital signs and Labs for Last 24 Hours: Temp Pulse Resp BP Pulse Ox 100.3 F H 99 H 20 108/69 L 91 L 12/26/20 04:00 12/26/20 04:00 12/26/20 04:00 12/26/20 04:00 12/26/20 04:00 Laboratory Results - last 24 hr 12/25/20 11:19: POC Glucose 94 12/25/20 12:06: Sodium 154 H*, Potassium 3.0 L, Chloride 120 H, Carbon Dioxide 27, Anion Gap 10.0, BUN 19 H, Creatinine 1.00 D, Estimated Creat Clear 37, Estimated GFR 54 L, Est GFR ( Amer) 65 D, Glucose 92 D, Calcium 7.8 L 12/25/20 16:05: POC Glucose 74 12/25/20 18:24: Sodium 153 H*, Potassium 3.6, Chloride 120 H, Carbon Dioxide 27, Anion Gap 9.6, BUN 19 H, Creatinine 1.00, Estimated Creat Clear 37, Estimated GFR 54 L, Est GFR ( Amer) 65, Glucose 103 H, Calcium 8.3 L 12/25/20 20:16: POC Glucose 97 12/26/20 05:27: WBC 14.8 H, RBC 3.49 L, Hgb 11.0 L, Hct 36.0 L, MCV 103.1 H, MCH 31.7 H, MCHC 30.7 L, RDW 14.7, Plt Count 223, MPV 10.7 H, Neut % (Auto) 80.0, Lymph % (Auto) 14.4, [place] % (Auto) 3.0, Eos % (Auto) 1.9, Baso % (Auto) 0.6, Neut # (Auto) 11.8 H, Lymph # (Auto) 2.1, [place] # (Auto) 0.5, Eos # (Auto) 0.3, Baso # (Auto) 0.1 12/26/20 05:27: Sodium 151 H*, Potassium 3.8, Chloride 120 H, Carbon Dioxide 26, Anion Gap 8.8, BUN 16, Creatinine 0.80, Estimated Creat Clear 39, Estimated GFR 70, Est GFR ( Amer) 84 D, Glucose 89, Calcium 8.4, Magnesium 2.0, Total Bilirubin 0.3, AST 88 H D, ALT 42, Alkaline Phosphatase 101, Total Protein 5.9 L D, Albumin 2.8 L D, Globulin 3.1, Albumin/Globulin Ratio 0.9 L I & O for Last 24 hours: Intake & Output 12/23/20 12/24/20 12/25/20 12/26/20 11:59 11:59 11:59 11:59 Intake Total 0 / 0 1917 / 1917 Output Total 600 / 600 955 / 955 Balance -600 / -600 962 / 962 Weight 108 lb 8.008 oz 114 lb 5 oz Microbiology Reports for the Last 24 Hours: Microbiology 12/25/20 11:15 Sputum - Expectorated Sputum Gram Stain - Final Narrative: Alert as noted in HPI. No focal neurologic deficits except for nonverbal status. Lungs with thick rhonchi throughout. Symmetric air entry. Heart rate regular. Abdomen is soft, colostomy bag in good position and functioning well. Extremities warm and well-perfused. Moving all 4 extremities but neurologic exam is difficult because of her significant communication deficit. Assessment and Plan (1) Hypernatremia Status: Acute Category: Medical Code(s): E87.0 - Hyperosmolality and hypernatremia (2) Alzheimer disease Status: Chronic Category: Medical Code(s): G30.9 - Alzheimer's disease, unspecified; F02.80 - Dementia in other diseases classified elsewhere without behavioral disturbance (3) HCAP (healthcare-associated pneumonia) Status: Acute Category: Medical Code(s): J18.9 - Pneumonia, unspecified organism (4) Schizophrenia Status: Chronic Category: Medical Code(s): F20.9 - Schizophrenia, unspecified (5) Type 2 diabetes mellitus Status: Acute Qualifiers: Diabetes mellitus lobsterman insulin use: without lobsterman use Diabetes mellitus complication status: without complication Qualified Code(s): E11.9 - Type 2 diabetes mellitus without complications Category: Medical Code(s): E11.9 - Type 2 diabetes mellitus without complications (6) DAPHNE (acute kidney injury) Status: Acute Category: Medical Code(s): N17.9 - Acute kidney failure, unspecified (7) NSTEMI (non-ST elevated myocardial infarction) Status: Acute Category: Medical Code(s): I21.4 - Non-ST elevation (NSTEMI) myocardial infarction (8) Moderate protein malnutrition Status: Chronic Category: Medical Code(s): E44.0 - Moderate prot
[2020-12-26 11:25] LABS: POC Glucose,Bedside 70 (70-110)
[2020-12-26 12:00] VITALS: BP 140/86; PULSE 96; RESP 17; TEMP 36.4; O2SAT 94
[2020-12-26 12:10] LABS: POC Glucose,Bedside 93 (70-110)
[2020-12-26 16:00] VITALS: BP 124/68; PULSE 65; RESP 18; TEMP 37.2; O2SAT 94
--- NOTE | 2020-12-26 16:17 | PC.NURSE ---
PT IS RESTING IN BED. TURNED AND REPOSITIONED FREQUENTLY. APPETITE HAS BEEN POOR. PT HAS TAKEN A FEW SIPS OF ENSURE OFF AND ON T/O THE SHIFT. LUNG SOUNDS HAVE SCATTERED RHONCHI. ABDOMEN SOFT/NON TENDER WITH ACTIVE BOWEL SOUNDS. COLOSTOMY NOTED TO LEFT SIDE OF THE ABDOMEN. WILL CONTINUE TO MONITOR.
[2020-12-26 17:23] LABS: POC Glucose,Bedside 83 (70-110)
[2020-12-26 20:00] VITALS: BP 151/79; PULSE 91; RESP 21; TEMP 37.1; O2SAT 93
[2020-12-26 21:08] LABS: POC Glucose,Bedside 88 (70-110)
[2020-12-27] VITALS: BP 148/94; PULSE 97; RESP 20; TEMP 37.1; O2SAT 98
[2020-12-27 04:00] VITALS: BP 141/69; PULSE 100; RESP 21; TEMP 36.9; O2SAT 92
[2020-12-27 05:00] VITALS: BMI 21.6
[2020-12-27 05:07] LABS: POC Glucose,Bedside 107 (70-110)
--- NOTE | 2020-12-27 06:27 | PC.NURSE ---
No acute changes t/o night. Pt remains on RA with O2 >90%. Moran draining yellow, clear urine. No concerns at this time.
[2020-12-27 07:57] VITALS: BP 128/88; PULSE 100; RESP 22; TEMP 37.2; O2SAT 95
--- NOTE | 2020-12-27 08:36 | HMH.ACPN2 ---
Internal Medicine - PN: Subj *Date: 12/27/20 *Time: 08:36 Interval history: Patient is alert, able to follow folks in the room with her eyes, as always remains nonverbal. Nods yes and no to some questions but really cannot follow commands in any way shape or form. Exam Vital signs and Labs for Last 24 Hours: Temp Pulse Resp BP Pulse Ox 99.0 F 100 H 22 128/88 95 12/27/20 07:57 12/27/20 07:57 12/27/20 07:57 12/27/20 07:57 12/27/20 07:57 Laboratory Results - last 24 hr 12/26/20 05:17: POC Glucose 70 12/26/20 11:51: POC Glucose 93 12/26/20 17:01: POC Glucose 83 12/26/20 20:20: POC Glucose 88 12/27/20 04:57: POC Glucose 107 I & O for Last 24 hours: Intake & Output 12/24/20 12/25/20 12/26/20 12/27/20 11:59 11:59 11:59 11:59 Intake Total 0 / 0 1917 / 1917 60 / 60 Output Total 600 / 600 955 / 955 850 / 850 Balance -600 / -600 962 / 962 -790 / -790 Weight 108 lb 8.008 oz 114 lb 5 oz 117 lb 9 oz Narrative: Patient is alert, awake, minimally responsive to commands. Lungs have rhonchi but slightly better air entry. Heart rate regular. Abdomen is soft. Oropharynx is moist and clear. Skin is warm and dry. Neurologic exam with facial drooping and significant weakness but poor response to exam makes this assessment very difficult. Assessment and Plan (1) Hypernatremia Status: Acute Category: Medical Code(s): E87.0 - Hyperosmolality and hypernatremia (2) Alzheimer disease Status: Chronic Category: Medical Code(s): G30.9 - Alzheimer's disease, unspecified; F02.80 - Dementia in other diseases classified elsewhere without behavioral disturbance (3) HCAP (healthcare-associated pneumonia) Status: Acute Category: Medical Code(s): J18.9 - Pneumonia, unspecified organism (4) Schizophrenia Status: Chronic Category: Medical Code(s): F20.9 - Schizophrenia, unspecified (5) Type 2 diabetes mellitus Status: Acute Qualifiers: Diabetes mellitus predatory animal exterminator insulin use: without half-way use Diabetes mellitus complication status: without complication Qualified Code(s): E11.9 - Type 2 diabetes mellitus without complications Category: Medical Code(s): E11.9 - Type 2 diabetes mellitus without complications (6) DAPHNE (acute kidney injury) Status: Acute Category: Medical Code(s): N17.9 - Acute kidney failure, unspecified (7) NSTEMI (non-ST elevated myocardial infarction) Status: Acute Category: Medical Code(s): I21.4 - Non-ST elevation (NSTEMI) myocardial infarction (8) Moderate protein malnutrition Status: Chronic Category: Medical Code(s): E44.0 - Moderate protein-calorie malnutrition (9) Anemia Status: Acute Category: Medical Code(s): D64.9 - Anemia, unspecified - Assessment and plan all Dx Assessment and Plan for all problems:: Overall improving vis-?-vis hyponatremia and pneumonia. Labs are pending this morning given the difficulty of her sticks. Care management has discussed case with her daughter who continues to request that she be a full code. We have treated her supportively with fluids and antibiotics which I think is very reasonable. Probable transfer back to [facility] tomorrow if sodium continues to improve.
[2020-12-27 10:14] LABS: Basophils # 0.1 K/mm3 (0-0.2); Eosinophils # 0.3 K/mm3 (0.0-0.4); Eosinophils % 3.4 % (0.1-12.0); Hematocrit 36.7 % (37.0-47.0); Hemoglobin 10.9 g/dL (12.2-16.2); Lymphocytes # 1.4 K/mm3 (0.7-4.5); Lymphocytes % 16.3 % (10-50); Mean Corpuscular HGB Conc 29.6 g/dL (31.8-35.4); Mean Corpuscular Hemoglobin 31.9 pg (27.0-31.2); Mean Corpuscular Volume 107.8 fl (81-99); Mean Platelet Volume 11.4 fl (7.4-10.4); Monocytes # 0.4 K/mm3 (0.1-1.0); Monocytes % 4.2 % (1.7-9.3); Neutrophils # 6.4 K/mm3 (1.8-7.8); Neutrophils % 75.1 % (37.0-80.0); Platelet Count 172 K/mm3 (142-424); Red Blood Count 3.41 M/mm3 (4.20-5.40); Red Cell Distribution Width 14.7 % (11.5-17.5); White Blood Count 8.5 K/mm3 (4.8-10.8)
[2020-12-27 10:21] LABS: Chloride 117 mmol/L (98-107); Potassium 3.7 mmoL/L (3.5-5.1); Sodium 146 mmol/L (136-145)
[2020-12-27 10:24] LABS: Alanine Aminotransferase 38 U/L (12-78); Albumin Level 2.8 g/dl (3.5-5.0); Albumin/Globulin Ratio 0.9 (1.1-1.8); Alkaline Phosphatase 90 U/L (38-126); Anion Gap 8.7 mEq/L (5-15); Aspartate Amino Transferase 74 U/L (14-36); Bilirubin,Total 0.3 mg/dl (0.2-1.3); Blood Urea Nitrogen 13 mg/dl (7-17); Calcium 8.4 mg/dl (8.4-10.2); Carbon Dioxide 24 mmol/L (22.0-30.0); Creatinine Clearance Estimated 40 mL/min (50-200); Estimated Glomerular Filt Rate 97 ml/min (>60); GFR (African American) 118 ML/MIN (>60); Glucose 90 mg/dl (74-100); Total Protein,Serum 5.8 g/dl (6.3-8.2)
[2020-12-27 11:52] LABS: POC Glucose,Bedside 81 (70-110)
[2020-12-27 16:00] VITALS: BP 145/72; PULSE 95; RESP 18; TEMP 36.8; O2SAT 97
[2020-12-27 20:00] VITALS: BP 145/75; PULSE 74; RESP 22; TEMP 36.9; O2SAT 96
[2020-12-27 22:22] LABS: POC Glucose,Bedside 111 (70-110)
[2020-12-27 22:22] LABS: POC Glucose,Bedside 90 (70-110)
[2020-12-28] VITALS: BP 167/66; PULSE 93; RESP 18; TEMP 36.7; O2SAT 95
[2020-12-28 03:49] VITALS: BP 147/72; PULSE 95; RESP 18; TEMP 36.9; O2SAT 97
--- NOTE | 2020-12-28 04:14 | PC.NURSE ---
Pt remains on RA with 02 saturation >90%. Moran is draining clear, yellow urine. IV is patent infusion LR @ 100ml/hr.
[2020-12-28 05:00] VITALS: BMI 21.0
[2020-12-28 07:35] LABS: Blood Urea Nitrogen 9 mg/dl (7-17); Calcium 8.4 mg/dl (8.4-10.2); Carbon Dioxide 23 mmol/L (22.0-30.0); Chloride 112 mmol/L (98-107); Creatinine Clearance Estimated 39 mL/min (50-200); Estimated Glomerular Filt Rate 120 ml/min (>60); GFR (African American) 145 ML/MIN (>60); Glucose 83 mg/dl (74-100); Sodium 142 mmol/L (136-145)
[2020-12-28 08:00] VITALS: BP 134/76; PULSE 72; RESP 16; TEMP 36.9; O2SAT 97
--- NOTE | 2020-12-28 08:44 | HMH.DCSUM ---
General - General Admission date:: 12/24/20 Discharge date: 12/28/20 HPI HPI: 75 year old female with long history of schizophrenia, Alzheimer's disease, colon cancer s/p resection with colostomy, diabetes and CAD was transferred from [facility] for evaluation of hypoxia. Patient treated for LLE pneumonia last week, WBC 22, with Rocephin and Azithromycin. Patient with poor oral intake and increased confusion since that time. Labs on 12/22 showed WBC 24, NA 170's, Chloride 130's. She was started on Invanz and IVF's. Today, she developed worsening shortness of breath with hypoxia, saturations around 80% on RA. She was transferred to [facility] ED where she was found to have persist hypernatremia. CXR unremarkable, BMP 1800's. She is a FULL CODE which was clarified by CRISTHIAN with daughter Shelia earlier this week. Both of her daughter's are listed as POA; however apparently the other is incarcerated. Admit to [facility] for IV hydration, abx and further evaluation. Hospital Course Hospital Course: Patient was admitted. Placed on IV fluids, IV antibiotics were also given because of risk of aspiration pneumonia issues. Sodium improved in a stepwise fashion. Leukocytosis improved. Patient did not have any worsening of her chronic anemia. She this morning was back to her baseline of being alert, but with extremely poor p.o. intake. Had a long conversation with her daughter Shelia, who is her healthcare surrogate. I discussed that she is now in terminal Alzheimer's phase and that I would recommend hospice consultation, DNR status and transfer back to [facility] today. She seems understanding of these issues but wishes to talk with the rest of the family. Plan to be to transfer back to [facility] today. She will continue her normal medications there, I will leave her Moran catheter in place because of palliative issues and risk of standing. I think her prognosis is terminal. She has lost weight, has almost no ability to eat by herself and I would recommend hospice care, DNR status and ongoing palliation. Objective Vital signs: Temp Pulse Resp BP Pulse Ox 98.5 F 95 H 18 147/72 H 97 12/28/20 03:49 12/28/20 03:49 12/28/20 03:49 12/28/20 03:49 12/28/20 03:49 no acute distress, thin, cachectic, chronically ill appearing - *Routine HEENT Exam Head: Present: normocephalic Eye: Present: EOMI, PERRL ENT: Present: mucous membranes moist - *Routine Neck Exam Present: supple - *Routine Respiratory Exam Present: rhonchi - *Routine Cardiovascular Exam Present: RRR - *Routine Abdominal Exam Present: soft, normoactive bowel sounds. Absent: tenderness - *Routine Extremities Exam Absent: cyanosis, clubbing, edema - *Routine Skin Exam Present: warm. Absent: rash - *Routine Neurological Exam Present: alert Appears cachectic, contractures noted from previous stroke disease. Patient follows with eyes but does not make any meaningful response to verbal or tactile stimuli. - Detailed Eye Exam Eyelids: Bilateral normal inspection Results Labs on day of discharge: Labs from last 24 hours 12/28/20 12/27/20 12/27/20 06:58 20:08 16:45 WBC RBC Hgb Hct MCV MCH MCHC RDW Plt Count MPV Neut % (Auto) Lymph % (Auto) [place] % (Auto) Eos % (Auto) Baso % (Auto) Neut # (Auto) Lymph # (Auto) [place] # (Auto) Eos # (Auto) Baso # (Auto) Sodium 142 Potassium 4.0 Chloride 112 H Carbon Dioxide 23 Anion Gap 11.0 BUN 9 D Creatinine 0.50 L Estimated Creat Clear 39 Estimated GFR 120 Est GFR ( Amer) 145 D Glucose 83 POC Glucose 90 111 H Calcium 8.4 Total Bilirubin AST ALT Alkaline Phosphatase Total Protein Albumin Globulin Albumin/Globulin Ratio 12/27/20 12/27/20 12/27/20 11:37 10:07 10:07 WBC 8.5 D RBC 3.41 L Hgb
--- NOTE | 2020-12-28 11:28 | PC.NURSE ---
[facility]And called dispatch @ [phone] for transfer back to [facility].
[2020-12-28 11:32] VITALS: BP 142/84; PULSE 68; RESP 16; TEMP 37; O2SAT 94
--- NOTE | 2020-12-28 11:55 | HMH.PULMPN ---
Internal Medicine - PN: Subj *Date: 12/28/20 *Time: 11:55 Interval history: No acute respiratory events over the weekend. Patient continued to remain on room air. Exam - Constitutional Constitutional:: Present: no acute distress, comfortable - HENMT Exam HENMT: Present: normocephalic, atraumatic - Eye Exam Eyes:: Present: normal appearance both eyes and related structures - Neck Exam Neck:: Present: normal visual inspection - Respiratory Exam Respiratory:: Present: no respiratory distress, rhonchi - Cardiovascular Exam Cardiac:: Present: S1, S2 - GI Exam GI:: Present: soft - Skin Exam Skin: Present: warm, no rash - Neurological Exam Neurological: Present: awake. Absent: alert, normal cognition - Extremities Exam Extremities: Present: no cyanosis, no clubbing, no edema Assessment and Plan (1) Hypernatremia Status: Resolved Category: Medical Code(s): E87.0 - Hyperosmolality and hypernatremia (2) Alzheimer disease Status: Chronic Category: Medical Code(s): G30.9 - Alzheimer's disease, unspecified; F02.80 - Dementia in other diseases classified elsewhere without behavioral disturbance (3) HCAP (healthcare-associated pneumonia) Status: Acute Category: Medical Code(s): J18.9 - Pneumonia, unspecified organism (4) Schizophrenia Status: Chronic Category: Medical Code(s): F20.9 - Schizophrenia, unspecified (5) Type 2 diabetes mellitus Status: Acute Qualifiers: Diabetes mellitus terminal makeup operator insulin use: without terminal makeup operator use Diabetes mellitus complication status: without complication Qualified Code(s): E11.9 - Type 2 diabetes mellitus without complications Category: Medical Code(s): E11.9 - Type 2 diabetes mellitus without complications (6) DAPHNE (acute kidney injury) Status: Acute Category: Medical Code(s): N17.9 - Acute kidney failure, unspecified (7) NSTEMI (non-ST elevated myocardial infarction) Status: Acute Category: Medical Code(s): I21.4 - Non-ST elevation (NSTEMI) myocardial infarction (8) Moderate protein malnutrition Status: Chronic Category: Medical Code(s): E44.0 - Moderate protein-calorie malnutrition (9) Anemia Status: Acute Category: Medical Code(s): D64.9 - Anemia, unspecified - Assessment and plan all Dx Assessment and Plan for all problems:: # Acute hypoxic respiratory failure: #Pneumonia: 75-year-old male history of schizophrenia, dementia presents with worsening respiratory distress and hyponatremia. Patient also found to be from baseline questionable left lower lobe pulmonary infiltrate. No other acute pulmonary process noted. Patient was recently treated for pneumonia with ceftriaxone and azithromycin followed by Invanz Patient presentation found to be hypoxic needing nasal naloxone supplementation but significantly improved. Repeat chest x-ray did not show any acute pulmonary infiltrates. Patient also found to be hypernatremic with serum sodium at 173 on presentation, which is normal limits 2 weeks ago. More likely subacute appear to be dehydrated. Patient received D5 water with sodium corrected to 158 in less than 24 hours, after rounding, I have discontinued her D5 water and recommendation to initiate sodium containing fluids normal saline to prevent further decline in her sodium. Patient has been receiving LR throughout the weekend by the primary team and her sodium level this morning is at 142. Creatinine also improved. Patient mentation baseline as per primary team. Nasal MRSA PCR negative Sputum culture moderate gram-positive cocci in pairs. Plan: -Speech and swallow evaluation and strict aspiration precautions -Continue levofloxacin x 5 days -Rest of the medical management as per primary team #Thank you for involving pulmonary in this patient care. Pulmonary will sign off at this point of time please call with any further questions or concerns.
[2020-12-28 14:38] LABS: POC Glucose,Bedside 105 (70-110)
== END 2020-12-28 15:15 | DRG 280 ==
LOC: ER 15:13 → 2ND 16:25
PROVIDERS: Internal Medicine Adolescent Medicine; Internal Medicine Pulmonary Disease; Admitting Provider Internal Medicine Adolescent Medicine; Emergency Provider Family Medicine; Visit Provider Internal Medicine Adolescent Medicine
DX: I21.4 Non-ST elevation (NSTEMI) myocardial infarction (principal); J18.9 Pneumonia, unspecified organism; J96.01 Acute respiratory failure with hypoxia; E44.0 Moderate protein-calorie malnutrition; E87.1 Hypo-osmolality and hyponatremia; N17.9 Acute kidney failure, unspecified; Z68.21 Body mass index [BMI] 21.0-21.9, adult; Y95 Nosocomial condition; G30.9 Alzheimer's disease, unspecified; F02.80 Dementia in other diseases classified elsewhere, unspecified severity, without behavioral disturbance, psychotic disturbance, mood disturbance, and anxiety; F20.9 Schizophrenia, unspecified; Z74.01 Bed confinement status; E86.0 Dehydration; I25.10 Atherosclerotic heart disease of native coronary artery without angina pectoris; I25.2 Old myocardial infarction; N18.9 Chronic kidney disease, unspecified; E11.22 Type 2 diabetes mellitus with diabetic chronic kidney disease; Z85.038 Personal history of other malignant neoplasm of large intestine; E78.5 Hyperlipidemia, unspecified; I69.398 Other sequelae of cerebral infarction
CPT/HCPCS: 36415; 71045; 80048; 80053; 81001; 82962; 83735; 83880; 84145; 84484; 85007; 85025; 87070; 87081; 87205; 92610; 93005; 96365; 99284; C9803; J1956; U0003; U0005

== ENCOUNTER → 2021-01-04 07:22 | Outpatient (CLI) | payer OTHER, MEDICARE, MEDICAID, SELFPAY ==
[2021-01-04 14:05] LABS: Basophils # 0.1 K/mm3 (0-0.2); Basophils % 0.8 % (0.1-2.0); Chloride 97 mmol/L (98-107); Eosinophils # 0.6 K/mm3 (0.0-0.4); Eosinophils % 3.8 % (0.1-12.0); Hematocrit 37.1 % (37.0-47.0); Hemoglobin 11.1 g/dL (12.2-16.2); Lymphocytes # 3.1 K/mm3 (0.7-4.5); Lymphocytes % 21.3 % (10-50); Mean Corpuscular HGB Conc 29.8 g/dL (31.8-35.4); Mean Corpuscular Hemoglobin 30.5 pg (27.0-31.2); Mean Corpuscular Volume 102.3 fl (81-99); Monocytes # 0.7 K/mm3 (0.1-1.0); Monocytes % 4.7 % (1.7-9.3); Neutrophils % 69.5 % (37.0-80.0); Platelet Count 381 K/mm3 (142-424); Potassium 3.4 mmoL/L (3.5-5.1); Red Blood Count 3.62 M/mm3 (4.20-5.40); Red Cell Distribution Width 14.6 % (11.5-17.5); Sodium 128 mmol/L (136-145); White Blood Count 14.4 K/mm3 (4.8-10.8)
[2021-01-04 14:07] LABS: Blood Urea Nitrogen 17 mg/dl (7-17); Estimated Glomerular Filt Rate 120 ml/min (>60); GFR (African American) 145 ML/MIN (>60)
[2021-01-04 14:08] LABS: Alanine Aminotransferase 25 U/L (12-78); Albumin Level 2.2 g/dl (3.5-5.0); Albumin/Globulin Ratio 0.8 (1.1-1.8); Alkaline Phosphatase 83 U/L (38-126); Anion Gap 8.4 mEq/L (5-15); Aspartate Amino Transferase 24 U/L (14-36); Calcium 7.3 mg/dl (8.4-10.2); Carbon Dioxide 26 mmol/L (22.0-30.0); Globulin 2.7 g/dL (1.3-3.2); Glucose 76 mg/dl (74-100); Total Protein,Serum 4.9 g/dl (6.3-8.2)
[2021-01-04 14:16] LABS: Bilirubin,Total < 0.1 mg/dl (0.2-1.3)
== END ==
PROVIDERS: Visit Provider Nurse Practitioner Family
DX: D64.9 Anemia, unspecified (principal)
CPT/HCPCS: 36415; 80053; 85025

== ENCOUNTER 2021-01-28 08:50 | Inpatient (IN) | payer OTHER, MEDICARE, MEDICAID, SELFPAY ==
[2021-01-28] VITALS (9 sets, daily range): BP systolic 91–149; BP diastolic 53–87; PULSE 101–136; RESP 20–48; TEMP 37.3–39.5; O2SAT 94–99; BMI 15.5
--- NOTE | 2021-01-28 09:07 | XR_ITS ---
PROCEDURE: XR CHEST PORTABLE CLINICAL HISTORY: fever COMPARISON: CR XR CHEST PORTABLE from 12/24/2020 CR XR CHEST PORTABLE from 12/25/2020 FINDINGS: There has been a prior median sternotomy. Heart size is normal. Coronary artery stent noted. The lungs are clear without infiltrates, suspicious nodules, or pleural effusions. Patient's head is tilted toward the right with right arm down by her side. Degenerative changes are present in the shoulders. IMPRESSION: No acute findings. Dictated by: García oSuth MD 01/28/2021 09:52 García South MD in OV 01/28/2021 09:52
[2021-01-28 09:14] LABS: Coronavirus 19, PCR Not Detected (NotDetected); Influenza A, PCR Not Detected (NotDetected); Influenza B, PCR Not Detected (NotDetected); Microscopic, Urine URINE MICROSCOPIC (MICROSCOPIC)
[2021-01-28 09:18] LABS: Basophils # 0.1 K/mm3 (0-0.2); Basophils % 0.7 % (0.1-2.0); Eosinophils % 0.2 % (0.1-12.0); Hematocrit 56.3 % (37.0-47.0); Hemoglobin 17.2 g/dL (12.2-16.2); Lymphocytes # 1.2 K/mm3 (0.7-4.5); Lymphocytes % 8.4 % (10-50); MANUAL DIFFERENTIAL MANUAL DIFFERENTIAL (MANUAL DIFF); Mean Corpuscular HGB Conc 30.5 g/dL (31.8-35.4); Mean Corpuscular Hemoglobin 31.3 pg (27.0-31.2); Mean Corpuscular Volume 102.7 fl (81-99); Mean Platelet Volume 11.5 fl (7.4-10.4); Monocytes # 0.6 K/mm3 (0.1-1.0); Neutrophils # 12.6 K/mm3 (1.8-7.8); Neutrophils % 86.8 % (37.0-80.0); Platelet Count 227 K/mm3 (142-424); Red Blood Count 5.48 M/mm3 (4.20-5.40); White Blood Count 14.6 K/mm3 (4.8-10.8)
[2021-01-28 09:19] LABS: Potassium 4.6 mmoL/L (3.5-5.1)
[2021-01-28 09:22] LABS: Alanine Aminotransferase 36 U/L (12-78); Albumin Level 4.1 g/dl (3.5-5.0); Albumin/Globulin Ratio 1.1 (1.1-1.8); Alkaline Phosphatase 234 U/L (38-126); Anion Gap 16.6 mEq/L (5-15); Aspartate Amino Transferase 53 U/L (14-36); Bilirubin,Total 0.8 mg/dl (0.2-1.3); Blood Urea Nitrogen 69 mg/dl (7-17); Calcium 10.1 mg/dl (8.4-10.2); Carbon Dioxide 26 mmol/L (22.0-30.0); Creatinine Clearance Estimated 10 mL/min (50-200); Estimated Glomerular Filt Rate 16 ml/min (>60); GFR (African American) 20 ML/MIN (>60); Globulin 3.7 g/dL (1.3-3.2); Glucose 198 mg/dl (74-100); Total Protein,Serum 7.8 g/dl (6.3-8.2)
[2021-01-28 09:25] LABS: Lactic Acid 3.1 mmol/L (0.7-2.1)
[2021-01-28 09:27] LABS: Appearance,Urine CLEAR (Clear); Blood, Urine 3+ (Negative); Color,Urine YELLOW (Yellow); Glucose,Urine (UA) Negative (Negative); Ketones,Urine Negative (Negative); Leukocyte Esterase,Urine Negative (Negative); Nitrate,Urine Negative (Negative); Protein,Urine 2+ (Negative); Urobilinogen,Urine 0.2 EU/dl (0.2)
[2021-01-28 09:33] LABS: Chloride 133 mmol/L (98-107); Sodium 171 mmol/L (136-145)
[2021-01-28 09:37] LABS: Bilirubin,Urine 2+ (Negative)
[2021-01-28 09:40] LABS: Lymphocytes % 9 % (10-50); Monocytes % 2 % (2-9); Neutrophils % 89 % (42-76); Total Cells Counted 100
[2021-01-28 09:41] LABS: Hypochromasia 1+; Macrocytosis 1+; Platelet Estimate Normal
[2021-01-28 09:44] LABS: Squamous Epithelial Cell,Urine Occasional #/hpf (0-5)
--- NOTE | 2021-01-28 09:54 | HMH.EDFEV ---
ED Disposition Clinical Impression: Fever of unknown origin, Hypernatremia Sepsis Qualifiers: Sepsis type: sepsis due to unspecified organism Sepsis acute organ dysfunction status: with acute organ dysfunction Severe sepsis acute organ dysfunction type: acute renal failure Acute renal failure type: unspecified Severe sepsis shock status: without septic shock Qualified Code(s): A41.9 - Sepsis, unspecified organism; R65.20 - Severe sepsis without septic shock; N17.9 - Acute kidney failure, unspecified Disposition: Admitted As Inpatient Condition on Discharge: Serious Referrals: Provider,Referral, [Primary Care Provider] - - Critical Care Critical Care Time: No Attestation: On 01/28/21, the high probability of a clinically significant, sudden or life threatening deterioration of the following system(s) required my full and direct attention, intervention and personal management. The time I documented below is in addition to time spent performing reported procedures but includes the following listed in this critical care notation. Medical Decision Making - Medical Records Medical records reviewed: Yes: I reviewed the patient's medical records. - Osvaldo Inquiry Pt receiving controlled substance: No Vital Signs: 01/28/21 08:51 01/28/21 09:30 01/28/21 10:00 Temperature 103.1 F H Temperature Source Rectal Pulse Rate 127 H 124 H Pulse Rate [Radial] 136 H Respiratory Rate 48 H 43 H 35 H Blood Pressure 120/77 140/85 Blood Pressure [Right Arm] 116/72 Blood Pressure Mean [Right Arm] 86 Blood Pressure Position [Right Arm] Sitting 02 Sat by Pulse Oximetry 96 96 97 Oxygen Delivery Method Room Air - Lab Data Lab Results 01/28/21 09:00: WBC 14.6 H, RBC 5.48 H, Hgb 17.2 H, Hct 56.3 H, MCV 102.7 H, MCH 31.3 H, MCHC 30.5 L, RDW 16.0, Plt Count 227, MPV 11.5 H, Neut % (Auto) 86.8 H, Lymph % (Auto) 8.4 L, [place] % (Auto) 4.0, Eos % (Auto) 0.2, Baso % (Auto) 0.7, Neut # (Auto) 12.6 H, Lymph # (Auto) 1.2, [place] # (Auto) 0.6, Eos # (Auto) 0.0, Baso # (Auto) 0.1, Total Counted 100, Neutrophils % (Manual) 89 H, Lymphocytes % (Manual) 9 L, Monocytes % (Manual) 2, Platelet Estimate Normal, RBC Morphology Not Reportable, Hypochromasia 1+, Macrocytosis 1+ 01/28/21 09:00: Sodium 171 H*, Potassium 4.6, Chloride 133 H, Carbon Dioxide 26, Anion Gap 16.6 H, BUN 69 H, Creatinine 2.80 H, Estimated Creat Clear 10, Estimated GFR 16 L*, Est GFR ( Amer) 20 L, Glucose 198 H, Calcium 10.1, Total Bilirubin 0.8, AST 53 H, ALT 36, Alkaline Phosphatase 234 H, Total Protein 7.8 D, Albumin 4.1, Globulin 3.7 H, Albumin/Globulin Ratio 1.1 01/28/21 09:00: Lactate 3.1 H 01/28/21 09:00: Urine Color Yellow, Urine Appearance Clear, Urine pH 7.0, Ur Specific [place] 1.020, Urine Protein 2+, Urine Glucose (UA) Negative, Urine Ketones Negative, Urine Blood 3+, Urine Nitrate Negative, Urine Bilirubin 2+ A, Urine Urobilinogen 0.2, Ur Leukocyte Esterase Negative, Urine RBC 10-20, Urine WBC 3-5, Ur Squamous Epith Cells Occasional, Urine Bacteria None Result diagrams: 01/28/21 09:00 01/28/21 09:00 Orders (Tests/Meds): ED MEDICATIONS Generic Name Dose Route Start Last Admin Trade Name Freq PRN Reason Stop Dose Admin Ceftriaxone Sodium 1 gm/ 50 mls @ 100 mls/hr 01/28/21 09:15 01/28/21 09:20 Sodium Chloride IV 02/11/21 09:14 100 mls/hr Q24H ARELI Administration Lactated Ringer's 1,160 mls @ 580 mls/hr 01/28/21 09:15 01/28/21 09:43 Lactated Ringer's 1000 Ml Bag 30 ml/kg infuse over 2 hr (1160 ml) 01/28/21 11:14 580 mls/hr IV Administration .Q2H ONE Discontinued Medications Generic Name Dose Route Start Last Admin Trade Name Freq PRN Reason Stop Dose Admin Acetaminophen 650 mg 01/28/21 09:06 01/28/21 09:17 Acetaminophen 650mg Suppository RC 01/28/21 09:07 650 mg ONCE ONE Administration Sodium Chloride 1,000 mls @ 999 mls/hr 01/28/21 09:30 Sod Chlor 0.9% 1000ml Bag IV 01/28/21 10:30 .Q1H1M SC
--- NOTE | 2021-01-28 10:34 | PC.NURSE ---
report called to floor
--- NOTE | 2021-01-28 10:50 | HMH.PHAVTE ---
[facility] VTE Monitoring - Patient Demographics Admission date: 01/28/21 Report Date: 01/28/21 Time: 10:50 Allergies/Adverse Reactions: Patient Allergies No Known Allergies Allergy (Verified 12/24/20 14:55) Height: 1.57 m Weight: 38.555 kg Patient Problems: Current Active Problems Hypernatremia (Acute) Sepsis (Acute) Fever of unknown origin (Acute) - VTE Risk Labs: VTE Related Lab Results Hgb 17.2 g/dL (12.2-16.2) H 01/28/21 09:00 Hct 56.3 % (37.0-47.0) H 01/28/21 09:00 Plt Count 227 K/mm3 (142-424) 01/28/21 09:00 BUN 69 mg/dl (7-17) H 01/28/21 09:00 Creatinine 2.80 mg/dl (0.52-1.04) H 01/28/21 09:00 Estimated Creat Clear 10 mL/min (50-200) 01/28/21 09:00 - Prophylaxis VTE Prophylaxis Ordered?: Yes Types of VTE Prophylaxis: TEDS Knee High, Pharmacological Location of Applied Device: Bilateral Lower Extremeties Pharmacologic Type: Enoxaparin
--- NOTE | 2021-01-28 11:34 | PC.NURSE ---
pt arrived to the floor at this time.
--- NOTE | 2021-01-28 12:10 | HMH.PHAINT ---
MEDICATION RECONCILIATION COMPLETED ON PATIENT USING MAR FROM [facility]. -GILMA JOHNSON, DUANED
--- NOTE | 2021-01-28 13:08 | PC.NURSE ---
admission was limited to the shelter paperwork because of patient mental status
[2021-01-28 13:11] LABS: Reflex Lactic Add Lactic Reflex
[2021-01-28 14:22] LABS: Lactic Acid Follow Up (RFLX 1) 2.9 mmol/L (0.7-2.1)
[2021-01-28 15:53] LABS: Reflex Lactic (2 hrs) Add Lactic Reflex
--- NOTE | 2021-01-28 17:41 | HMH.HP ---
*Admission Date: 01/28/21 *Chief complaint: Fever/lethargy *History of present illness: 75-year-old female, long-term resident of [facility] with schizophrenia, severe dementia and chronic confusion/obtunded mental status who over the past 4 to 5 weeks has had recurrent aspiration episodes treated with antibiotics. Her condition declined to the point where she was enrolled in hospice care but family had not yet made a decision about CODE STATUS and this morning she was found to be febrile, obtunded, hypotensive and tachycardic and transferred to emergency department. In the emergency department she met criteria for sepsis. She was administered fluids, IV antibiotics and transferred to floor in poor condition. [facility] History I have reviewed the patient's past medical history: Yes Medical History: Reports:: Atherosclerotic Heart Disease, Cancer (LARGE INTESTINE), Coronary Artery Disease, Hyperlipidemia, Myocardial Infarction Denies:: Diabetes Mellitus Type 1, Diabetes Mellitus Type 2 *Have you ever received a pneumonia vaccine?: Yes *Have you received a flu vaccine this season?: Yes Other Medical History: Reports: Cataracts Other Surgeries: Yes: Hysterectomy-Total, Other - *Social History Last grade of school completed: None Smoking Status: Unknown if ever smoked Alcohol Intake: never *Occupational Status:: other Housing: senior living *Travel in the last 8 weeks: None Family Hx:: Unable to obtain Review of Systems - Review of Systems Review of systems:: unable to obtain Meds Home Medications Medication Instructions Recorded Confirmed Type Acetaminophen [Tylenol Extra 1,000 mg PO BID 12/24/20 01/28/21 History Strength] Famotidine [Pepcid 20mg Tablet] 20 mg PO DAILY 12/24/20 01/28/21 History Hyoscyamine Sulfate 0.125 mg PO BID 12/24/20 01/28/21 History Loratadine [Claritin 10mg 10 mg PO DAILY 12/24/20 01/28/21 History Tablet] ondansetron HCL [Zofran 4mg Tab*] 4 mg PO Q8HP PRN 12/24/20 01/28/21 History polyethylene glycoL 3350 [Miralax 17 gm PO DAILYP PRN 12/24/20 01/28/21 History Powder] Aspirin [Aspirin 81mg chewable 81 mg PO DAILY 12/25/20 01/28/21 History tab] Polyvinyl Alcohol/Povidone/Pf 1 drp OP QID 01/28/21 01/28/21 History [Refresh Classic Eye Drops] Allergies Allergy/AdvReac Type Severity Reaction Status Date / Time No Known Allergies Allergy Verified 12/24/20 14:55 Exam Vital signs and Labs for Last 24 Hours: Temp Pulse Resp BP Pulse Ox 99.5 F 116 H 20 124/72 97 01/28/21 11:40 01/28/21 11:40 01/28/21 11:40 01/28/21 11:40 01/28/21 11:40 Laboratory Results - last 24 hr 01/28/21 09:00: WBC 14.6 H, RBC 5.48 H, Hgb 17.2 H, Hct 56.3 H, MCV 102.7 H, MCH 31.3 H, MCHC 30.5 L, RDW 16.0, Plt Count 227, MPV 11.5 H, Neut % (Auto) 86.8 H, Lymph % (Auto) 8.4 L, [place] % (Auto) 4.0, Eos % (Auto) 0.2, Baso % (Auto) 0.7, Neut # (Auto) 12.6 H, Lymph # (Auto) 1.2, [place] # (Auto) 0.6, Eos # (Auto) 0.0, Baso # (Auto) 0.1, Total Counted 100, Neutrophils % (Manual) 89 H, Lymphocytes % (Manual) 9 L, Monocytes % (Manual) 2, Platelet Estimate Normal, RBC Morphology Not Reportable, Hypochromasia 1+, Macrocytosis 1+ 01/28/21 09:00: Sodium 171 H*, Potassium 4.6, Chloride 133 H, Carbon Dioxide 26, Anion Gap 16.6 H, BUN 69 H, Creatinine 2.80 H, Estimated Creat Clear 10, Estimated GFR 16 L*, Est GFR ( Amer) 20 L, Glucose 198 H, Calcium 10.1, Total Bilirubin 0.8, AST 53 H, ALT 36, Alkaline Phosphatase 234 H, Total Protein 7.8 D, Albumin 4.1, Globulin 3.7 H, Albumin/Globulin Ratio 1.1 01/28/21 09:00: Lactate 3.1 H 01/28/21 09:00: Urine Color Yellow, Urine Appearance Clear, Urine pH 7.0, Ur Specific [place] 1.020, Urine Protein 2+, Urine Glucose (UA) Negative, Urine Ketones Negative, Urine Blood 3+, Urine Nitrate Negative, Urine Bilirubin 2+ A, Urine Urobilinogen 0.2, Ur Leukocyte Esterase Negative, Urine RBC 10-20, Urine WBC 3-5, Ur Squamous Epith Cells Occasional, U
--- NOTE | 2021-01-28 18:35 | PC.NURSE ---
Did speak with Shelia Prado, pt's daughter earlier this shift and update her on pt's status. Zi Horne and myself received order for pt to be a DNR and also photo consent. Pt is resting and seems to be in NAD at this time. coil winder here this shift to see pt and plans to see pt again anu as well.
[2021-01-29] VITALS: BP 123/62; PULSE 106; RESP 20; TEMP 38.2; O2SAT 96
--- NOTE | 2021-01-29 03:35 | PC.NURSE ---
No acute changes. Pt has slept at intervals. Turned/repositioned. Pt has been tachycardic with elevated temp this shift. She is currently on 3L O2 NC. Pt responds to painful stimuli. No other concerns. Will continue to monitor.
[2021-01-29 04:00] VITALS: BP 126/74; PULSE 102; RESP 16; TEMP 36.9; O2SAT 96
[2021-01-29 05:00] VITALS: BMI 17.4
--- NOTE | 2021-01-29 06:49 | HMH.ACPN2 ---
Internal Medicine - PN: Subj *Date: 01/29/21 *Time: 08:13 Interval history: Reviewed labs from this morning. Sodium slowly improving to 169 today. Kidney function drastically improved. Tolerating volume resuscitation well. Pleasant and alert on exam this morning but unresponsive to questions. Afebrile overnight Exam Vital signs and Labs for Last 24 Hours: Temp Pulse Resp BP Pulse Ox 98.4 F 102 H 16 126/74 96 01/29/21 04:00 01/29/21 04:00 01/29/21 04:00 01/29/21 04:00 01/29/21 04:00 Laboratory Results - last 24 hr 01/28/21 09:00: WBC 14.6 H, RBC 5.48 H, Hgb 17.2 H, Hct 56.3 H, MCV 102.7 H, MCH 31.3 H, MCHC 30.5 L, RDW 16.0, Plt Count 227, MPV 11.5 H, Neut % (Auto) 86.8 H, Lymph % (Auto) 8.4 L, [place] % (Auto) 4.0, Eos % (Auto) 0.2, Baso % (Auto) 0.7, Neut # (Auto) 12.6 H, Lymph # (Auto) 1.2, [place] # (Auto) 0.6, Eos # (Auto) 0.0, Baso # (Auto) 0.1, Total Counted 100, Neutrophils % (Manual) 89 H, Lymphocytes % (Manual) 9 L, Monocytes % (Manual) 2, Platelet Estimate Normal, RBC Morphology Not Reportable, Hypochromasia 1+, Macrocytosis 1+ 01/28/21 09:00: Sodium 171 H*, Potassium 4.6, Chloride 133 H, Carbon Dioxide 26, Anion Gap 16.6 H, BUN 69 H, Creatinine 2.80 H, Estimated Creat Clear 10, Estimated GFR 16 L*, Est GFR ( Amer) 20 L, Glucose 198 H, Calcium 10.1, Total Bilirubin 0.8, AST 53 H, ALT 36, Alkaline Phosphatase 234 H, Total Protein 7.8 D, Albumin 4.1, Globulin 3.7 H, Albumin/Globulin Ratio 1.1 01/28/21 09:00: Lactate 3.1 H 01/28/21 09:00: Urine Color Yellow, Urine Appearance Clear, Urine pH 7.0, Ur Specific [place] 1.020, Urine Protein 2+, Urine Glucose (UA) Negative, Urine Ketones Negative, Urine Blood 3+, Urine Nitrate Negative, Urine Bilirubin 2+ A, Urine Urobilinogen 0.2, Ur Leukocyte Esterase Negative, Urine RBC 10-20, Urine WBC 3-5, Ur Squamous Epith Cells Occasional, Urine Bacteria None 01/28/21 09:00: SARS-CoV-2 (PCR) Not detected, Influenza A Untype (PCR) Not detected, Influenza Type B (PCR) Not detected 01/28/21 13:45: Lactate 2.9 H 01/28/21 16:20: Lactate 2.0 I & O for Last 24 hours: Intake & Output 01/26/21 01/27/21 01/28/21 01/29/21 23:59 23:59 23:59 23:59 Intake Total 450 / 450 Output Total 100 / 100 Balance 350 / 350 Weight 38.555 kg 42.91 kg Narrative: - Constitutional mild distress, thin, cachectic, chronically ill appearing, disoriented, somnolent - *Routine HEENT Exam Head: Present: normocephalic Eye: Present: EOMI, PERRL ENT: Present: mucous membranes dry - *Routine Neck Exam Present: supple. Absent: lymphadenopathy - *Routine Respiratory Exam Present: rhonchi, wheezes, diminished air movement - *Routine Cardiovascular Exam Present: RRR, murmur - *Routine Abdominal Exam Present: soft, normoactive bowel sounds. Absent: tenderness - *Routine Extremities Exam Absent: cyanosis, clubbing, edema; Extremities dry and contracted. No rash, distal extremities are cool - *Routine Skin Exam Present: warm. Absent: rash - *Routine Neurological Exam alert, not oriented, contracted extremities, minimally responsive to tactile stimuli Assessment and Plan (1) Hypernatremia Status: Acute Category: Medical Code(s): E87.0 - Hyperosmolality and hypernatremia (2) Sepsis Status: Acute Qualifiers: Sepsis type: sepsis due to unspecified organism Sepsis acute organ dysfunction status: with acute organ dysfunction Severe sepsis acute organ dysfunction type: acute renal failure Acute renal failure type: unspecified Severe sepsis shock status: without septic shock Qualified Code(s): A41.9 - Sepsis, unspecified organism; R65.20 - Severe sepsis without septic shock; N17.9 - Acute kidney failure, unspecified Category: Medical Code(s): A41.9 - Sepsis, unspecified organism (3) Acute respiratory failure with hypoxia Status: Acute Category: Medical Code(s): J96.01 - Acute respiratory failure with hypoxia (4) DAPHNE (acute kidney injury
[2021-01-29 07:04] LABS: Basophils # 0.1 K/mm3 (0-0.2); Basophils % 0.5 % (0.1-2.0); Eosinophils # 0.1 K/mm3 (0.0-0.4); Eosinophils % 0.8 % (0.1-12.0); Hematocrit 47.5 % (37.0-47.0); Lymphocytes % 12.1 % (10-50); Mean Corpuscular HGB Conc 29.6 g/dL (31.8-35.4); Mean Corpuscular Hemoglobin 30.8 pg (27.0-31.2); Mean Corpuscular Volume 104.1 fl (81-99); Mean Platelet Volume 12.8 fl (7.4-10.4); Monocytes # 0.5 K/mm3 (0.1-1.0); Neutrophils # 13.5 K/mm3 (1.8-7.8); Neutrophils % 83.5 % (37.0-80.0); Platelet Count 160 K/mm3 (142-424); Red Blood Count 4.57 M/mm3 (4.20-5.40); Red Cell Distribution Width 16.2 % (11.5-17.5); White Blood Count 16.1 K/mm3 (4.8-10.8)
[2021-01-29 07:07] LABS: Potassium 3.9 mmoL/L (3.5-5.1)
[2021-01-29 07:09] LABS: Alanine Aminotransferase 20 U/L (12-78); Albumin Level 3.2 g/dl (3.5-5.0); Alkaline Phosphatase 180 U/L (38-126); Anion Gap 7.9 mEq/L (5-15); Aspartate Amino Transferase 43 U/L (14-36); Bilirubin,Total 0.7 mg/dl (0.2-1.3); Blood Urea Nitrogen 53 mg/dl (7-17); Carbon Dioxide 31 mmol/L (22.0-30.0); Creatinine Clearance Estimated 25 mL/min (50-200); Estimated Glomerular Filt Rate 40 ml/min (>60); GFR (African American) 48 ML/MIN (>60); Globulin 3.3 g/dL (1.3-3.2); Total Protein,Serum 6.5 g/dl (6.3-8.2)
[2021-01-29 07:10] LABS: Calcium 9.5 mg/dl (8.4-10.2); Glucose 121 mg/dl (74-100)
[2021-01-29 07:21] LABS: Hemoglobin 14.1 g/dL (12.2-16.2)
[2021-01-29 07:23] LABS: MANUAL DIFFERENTIAL MANUAL DIFFERENTIAL (MANUAL DIFF)
[2021-01-29 07:28] LABS: Chloride 134 mmol/L (98-107); Sodium 169 mmol/L (136-145)
--- NOTE | 2021-01-29 07:29 | PC.NURSE ---
Addendum entered by Kelly Nguyen RN 01/29/21 14:55: MD Ceferino notified for Clarke's office Original Note: reported critical lab of serum sodium of 169 to MD Clarke
[2021-01-29 07:38] VITALS: BP 116/50; PULSE 103; RESP 20; TEMP 37.2; O2SAT 93
[2021-01-29 08:23] LABS: Eosinophils % 2 % (0-3); Lymphocytes % 18 % (10-50); Monocytes % 5 % (2-9); Neutrophils % 75 % (42-76); Nucleated Red Blood Cells 1; Total Cells Counted 100
[2021-01-29 08:24] LABS: Macrocytosis 1+
[2021-01-29 08:25] LABS: Hypochromasia 1+; Platelet Estimate Normal
--- NOTE | 2021-01-29 09:45 | SW/DCPLANNER ---
Addendum entered by Avril Orellana 02/01/21 07:51: PATIENT CONTINUES TO BE IN THE ACUTE HOSPITAL, ATTEMPTING TO GET HER SODIUM IN A BETTER RANGE BEFORE DISCHARGING BACK TO THE RESIDENTIAL...PATIENT MAY BE ABLE TO DISCHARGE BACK TODAY AND IS AT [facility] UNDER HOSPICE CARE... Original Note: SENT UPDATES ON THIS PATIENT TO [facility] TODAY AND INFORMED THE [employer]IT[facility] SHE MAY RETURN BACK OVER THE WEEKEND.. PATIENT IS A [employer] PATIENT...
--- NOTE | 2021-01-29 14:47 | PC.NURSE ---
lab called and gave results of blood cultures. verifed name of patient and birthdate. repeated results. this was relayed to primart nurse sofiya ward who reported this to dr miramontes
[2021-01-29 16:00] VITALS: BP 150/99; PULSE 116; RESP 24; TEMP 36.8; O2SAT 97
[2021-01-29 16:06] VITALS: BMI 17.4
--- NOTE | 2021-01-29 16:25 | PC.NURSE ---
ATTEMPTED TO PLACE PICC LINE WITH NO SUCCESS, RN NOTIFIED
--- NOTE | 2021-01-29 17:55 | PC.NURSE ---
Patient lost IV access during shift; access was attempted by multiple RNs with no success. Spoke with provider- gave verbal order to consent for central/PICC placement with family. Family gave telephone consent for TLDL placement. PICC ordered. Upon arrival and 2 attempts, PICC was unsuccessful. PICC RN then attempted to gain peripheral access with no success. Primary RN placed 24g in the left foot with positive blood return. Provider was notified. Fluids were restarted according to eMAR. Provider had given verbal order for lab redraw at 18:00. Due to the inability to gain an IV- RN will pass this on to night filler once D5 0.45% NS with 20 mEq of K+ is complete so that labs are more accurate depiction of treatment
[2021-01-29 20:00] VITALS: BP 127/60; PULSE 112; RESP 18; TEMP 38.7; O2SAT 90
[2021-01-30] VITALS: TEMP 37.6
[2021-01-30 01:01] VITALS: BP 112/43; PULSE 68; RESP 17; TEMP 37.6; O2SAT 91
[2021-01-30 01:32] LABS: Basophils # 0.1 K/mm3 (0-0.2); Basophils % 0.4 % (0.1-2.0); Eosinophils # 0.1 K/mm3 (0.0-0.4); Mean Corpuscular Volume 106.1 fl (81-99); Monocytes # 0.4 K/mm3 (0.1-1.0); Neutrophils # 13.2 K/mm3 (1.8-7.8)
[2021-01-30 01:35] LABS: Anion Gap 4.7 mEq/L (5-15); Blood Urea Nitrogen 41 mg/dl (7-17); Carbon Dioxide 29 mmol/L (22.0-30.0); Creatinine Clearance Estimated 29 mL/min (50-200); Eosinophils % 0.6 % (0.1-12.0); Estimated Glomerular Filt Rate 48 ml/min (>60); GFR (African American) 58 ML/MIN (>60); Hematocrit 42.1 % (37.0-47.0); Lymphocytes # 1.8 K/mm3 (0.7-4.5); Lymphocytes % 11.3 % (10-50); Mean Corpuscular HGB Conc 29.3 g/dL (31.8-35.4); Mean Corpuscular Hemoglobin 31.1 pg (27.0-31.2); Mean Platelet Volume 12.7 fl (7.4-10.4); Monocytes % 2.4 % (1.7-9.3); Neutrophils % 85.3 % (37.0-80.0); Platelet Count 130 K/mm3 (142-424); Potassium 3.7 mmoL/L (3.5-5.1); Red Blood Count 3.97 M/mm3 (4.20-5.40); Red Cell Distribution Width 16.2 % (11.5-17.5); White Blood Count 15.5 K/mm3 (4.8-10.8)
[2021-01-30 01:36] LABS: Hemoglobin 12.3 g/dL (12.2-16.2)
[2021-01-30 01:37] LABS: MANUAL DIFFERENTIAL MANUAL DIFFERENTIAL (MANUAL DIFF)
[2021-01-30 01:38] LABS: Chloride 134 mmol/L (98-107); Sodium 164 mmol/L (136-145)
[2021-01-30 01:39] LABS: Glucose 187 mg/dl (74-100)
[2021-01-30 01:51] LABS: Anisocytosis 1+; Hypochromasia 3+; Lymphocytes % 3 % (10-50); Macrocytosis 2+; Monocytes % 1 % (2-9); Neutrophils % 82 % (42-76); Platelet Estimate Slight Decrease; Rouleaux 2+; Total Cells Counted 100
--- NOTE | 2021-01-30 03:57 | PC.NURSE ---
PT IS UNABLE TO ANSWER QUESTIONS. OPENS EYES AND RESPONDS TO STIMULI. PT HAS REMAINED DEPENDENT ON STAFF FOR CARE. PT INCONTINENT OF BOWEL AND BLADDER. BRIEF KEPT CLEAN AND DRY. PT TURNED Q2H, ALONG WITH Q2H ORAL CARE. PT REMAINS ON 3LNC. TOLERATING WELL. BED SAFETY IN USE. PT DID HAVE TEMPERATURE OF 101.6 AT BEGINNING OF SHIFT. ACTIVE COOLING MEASURES IN PLACE AND TYLENOL ADMINISTERED. ON REASSESSMENT TEMPERATURE 99.7. PT IN CONTACT PRECAUTIONS T/O SHIFT. VSS WILL CONTINUE TO MONITOR.
[2021-01-30 04:00] VITALS: BP 118/71; PULSE 75; RESP 20; TEMP 37.3
[2021-01-30 05:00] VITALS: BMI 19.7
[2021-01-30 08:00] VITALS: BP 135/61; PULSE 104; RESP 20; TEMP 37.5; O2SAT 99
[2021-01-30 08:44] LABS: Potassium 3.6 mmoL/L (3.5-5.1)
[2021-01-30 08:46] LABS: Alanine Aminotransferase 17 U/L (12-78); Albumin Level 2.9 g/dl (3.5-5.0); Albumin/Globulin Ratio 0.9 (1.1-1.8); Alkaline Phosphatase 184 U/L (38-126); Anion Gap 7.6 mEq/L (5-15); Aspartate Amino Transferase 40 U/L (14-36); Bilirubin,Total 0.6 mg/dl (0.2-1.3); Blood Urea Nitrogen 33 mg/dl (7-17); Calcium 9.2 mg/dl (8.4-10.2); Carbon Dioxide 27 mmol/L (22.0-30.0); Creatinine Clearance Estimated 37 mL/min (50-200); Estimated Glomerular Filt Rate 61 ml/min (>60); GFR (African American) 74 ML/MIN (>60); Globulin 3.1 g/dL (1.3-3.2); Glucose 125 mg/dl (74-100)
[2021-01-30 08:47] LABS: Magnesium 2.6 mg/dl (1.6-2.3)
--- NOTE | 2021-01-30 09:01 | HMH.ACPN2 ---
Internal Medicine - PN: Subj *Date: 01/30/21 *Time: 09:01 Interval history: Patient is obtunded. Has eaten a couple bites of food per nursing staff. Otherwise not much change management consultant exam or clinical scenario. Electrolytes improving with IV fluids Exam Vital signs and Labs for Last 24 Hours: Temp Pulse Resp BP Pulse Ox 99.1 F 75 20 118/71 91 L 01/30/21 04:00 01/30/21 04:00 01/30/21 04:00 01/30/21 04:00 01/30/21 01:01 Laboratory Results - last 24 hr 01/30/21 01:10: WBC 15.5 H, RBC 3.97 L, Hgb 12.3 D, Hct 42.1, MCV 106.1 H, MCH 31.1, MCHC 29.3 L, RDW 16.2, Plt Count 130 L, MPV 12.7 H, Neut % (Auto) 85.3 H, Lymph % (Auto) 11.3, [place] % (Auto) 2.4, Eos % (Auto) 0.6, Baso % (Auto) 0.4, Neut # (Auto) 13.2 H, Lymph # (Auto) 1.8, [place] # (Auto) 0.4, Eos # (Auto) 0.1, Baso # (Auto) 0.1, Total Counted 100, Neutrophils % (Manual) 82 H, Band Neutrophils % 14.0 H, Lymphocytes % (Manual) 3 L, Monocytes % (Manual) 1 L, Platelet Estimate Slight decrease, Hypochromasia 3+, Anisocytosis 1+, Macrocytosis 2+, [place] 2+ 01/30/21 01:10: Sodium 164 H*, Potassium 3.7, Chloride 134 H, Carbon Dioxide 29, Anion Gap 4.7 L, BUN 41 H, Creatinine 1.10 H, Estimated Creat Clear 29, Estimated GFR 48 L, Est GFR ( Amer) 58 L D, Glucose 187 H D, Calcium 9.0 I & O for Last 24 hours: Intake & Output 01/27/21 01/28/21 01/29/21 01/30/21 11:59 11:59 11:59 11:59 Intake Total 450 / 450 1778 / 1778 Output Total 100 / 100 Balance 350 / 350 1778 / 1778 Weight 85 lb 94 lb 9.6 oz 107 lb 4.8 oz Microbiology Reports for the Last 24 Hours: Microbiology 01/28/21 09:00 Blood Blood Culture - Preliminary 01/28/21 09:00 Blood Blood Culture - Preliminary Narrative: - Constitutional mild distress, thin, cachectic, chronically ill appearing, disoriented, somnolent - *Routine HEENT Exam Head: Present: normocephalic Eye: Present: EOMI, PERRL ENT: Present: mucous membranes dry - *Routine Neck Exam Present: supple. Absent: lymphadenopathy - *Routine Respiratory Exam Present: rhonchi, wheezes, diminished air movement - *Routine Cardiovascular Exam Present: RRR, murmur - *Routine Abdominal Exam Present: soft, normoactive bowel sounds. Absent: tenderness - *Routine Extremities Exam Absent: cyanosis, clubbing, edema; Extremities dry and contracted. No rash, distal extremities are cool - *Routine Skin Exam Present: warm. Absent: rash - *Routine Neurological Exam alert, not oriented, contracted extremities, minimally responsive to tactile stimuli Assessment and Plan (1) Hypernatremia Status: Acute Category: Medical Code(s): E87.0 - Hyperosmolality and hypernatremia (2) Sepsis Status: Acute Qualifiers: Sepsis type: sepsis due to unspecified organism Sepsis acute organ dysfunction status: with acute organ dysfunction Severe sepsis acute organ dysfunction type: acute renal failure Acute renal failure type: unspecified Severe sepsis shock status: without septic shock Qualified Code(s): A41.9 - Sepsis, unspecified organism; R65.20 - Severe sepsis without septic shock; N17.9 - Acute kidney failure, unspecified Category: Medical Code(s): A41.9 - Sepsis, unspecified organism (3) Acute respiratory failure with hypoxia Status: Acute Category: Medical Code(s): J96.01 - Acute respiratory failure with hypoxia (4) DAPHNE (acute kidney injury) Status: Acute Category: Medical Code(s): N17.9 - Acute kidney failure, unspecified (5) Moderate protein malnutrition Status: Chronic Category: Medical Code(s): E44.0 - Moderate protein-calorie malnutrition - Assessment and plan all Dx Assessment and Plan for all problems:: Overall improved secondary to IV fluids. Patient's overall prognosis is extremely poor because she is unable to keep up her fluids and hydration and nutrition on her own. Continue low-dose IV fluids today, see how she does tomorrow, consider transfer back to [facility]
[2021-01-30 09:05] LABS: Sodium 166 mmol/L (136-145)
[2021-01-30 09:06] LABS: Chloride 135 mmol/L (98-107)
[2021-01-30 09:30] LABS: Basophils # 0.1 K/mm3 (0-0.2); Basophils % 0.3 % (0.1-2.0); Eosinophils # 0.1 K/mm3 (0.0-0.4); Eosinophils % 0.6 % (0.1-12.0); Hematocrit 40.7 % (37.0-47.0); Hemoglobin 11.9 g/dL (12.2-16.2); Lymphocytes # 1.6 K/mm3 (0.7-4.5); Lymphocytes % 8.9 % (10-50); Mean Corpuscular HGB Conc 29.2 g/dL (31.8-35.4); Mean Corpuscular Hemoglobin 30.8 pg (27.0-31.2); Mean Corpuscular Volume 105.2 fl (81-99); Mean Platelet Volume 13.4 fl (7.4-10.4); Monocytes # 0.6 K/mm3 (0.1-1.0); Monocytes % 3.2 % (1.7-9.3); Neutrophils # 15.2 K/mm3 (1.8-7.8); Platelet Count 133 K/mm3 (142-424); Red Blood Count 3.87 M/mm3 (4.20-5.40); Red Cell Distribution Width 15.6 % (11.5-17.5); White Blood Count 17.4 K/mm3 (4.8-10.8)
--- NOTE | 2021-01-30 09:50 | PC.NURSE ---
critical sodium called at 0900 to MD Clarke
[2021-01-30 12:00] VITALS: BP 144/66; PULSE 105; RESP 22; TEMP 36.5; O2SAT 97
[2021-01-30 19:55] VITALS: BP 116/61; PULSE 100; RESP 16; TEMP 37.2; O2SAT 93
[2021-01-31] VITALS (7 sets, daily range): BP systolic 117–149; BP diastolic 48–77; PULSE 65–116; RESP 16–22; TEMP 36.6–37.2; O2SAT 87–100; BMI 18.0
--- NOTE | 2021-01-31 03:54 | PC.NURSE ---
PT REMAINS UNAWARE AND UNABLE TO ANSWER QUESTIONS. TOLERATING 3LNC WELL. PT HAS BEEN TURNED AND REPOSITIONED Q2H THIS SHIFT, ALONG WITH ORAL CARE. TOLERATING WELL. COLOSTOMY IN PLACE, CDI. PURE WICK IN PLACE DRAINING DARK YELLOW URINE. NO C/O THUS FAR. VSS WILL CONTINUE TO MONITOR.
--- NOTE | 2021-01-31 08:27 | HMH.ACPN2 ---
Internal Medicine - PN: Subj *Date: 01/31/21 *Time: 08:27 Interval history: Patient has maintained IV fluids overnight. She is slightly more alert, is responsive to nursing care and her eyes are wide open this morning which is a slight improvement over her baseline. Exam Vital signs and Labs for Last 24 Hours: Temp Pulse Resp BP Pulse Ox 98.0 F 65 18 149/56 H 100 01/31/21 08:00 01/31/21 08:00 01/31/21 08:00 01/31/21 08:00 01/31/21 08:00 Laboratory Results - last 24 hr 01/30/21 07:51: WBC 17.4 H, RBC 3.87 L, Hgb 11.9 L, Hct 40.7, MCV 105.2 H, MCH 30.8, MCHC 29.2 L, RDW 15.6, Plt Count 133 L, MPV 13.4 H, Neut % (Auto) 87.0 H, Lymph % (Auto) 8.9 L, [place] % (Auto) 3.2, Eos % (Auto) 0.6, Baso % (Auto) 0.3, Neut # (Auto) 15.2 H, Lymph # (Auto) 1.6, [place] # (Auto) 0.6, Eos # (Auto) 0.1, Baso # (Auto) 0.1 01/30/21 07:51: Sodium 166 H*, Potassium 3.6, Chloride 135 H, Carbon Dioxide 27, Anion Gap 7.6, BUN 33 H, Creatinine 0.90, Estimated Creat Clear 37, Estimated GFR 61, Est GFR ( Amer) 74 D, Glucose 125 H D, Calcium 9.2, Magnesium 2.6 H, Total Bilirubin 0.6, AST 40 H, ALT 17, Alkaline Phosphatase 184 H, Total Protein 6.0 L, Albumin 2.9 L, Globulin 3.1, Albumin/Globulin Ratio 0.9 L I & O for Last 24 hours: Intake & Output 01/28/21 01/29/21 01/30/21 01/31/21 11:59 11:59 11:59 11:59 Intake Total 450 / 450 1777 / 1778 Output Total 100 / 100 850 / 850 Balance 350 / 350 1778 / 1778 -850 / -850 Weight 85 lb 94 lb 9.6 oz 107 lb 4.8 oz 98 lb 1.6 oz Narrative: - Constitutional mild distress, thin, cachectic, chronically ill appearing, disoriented, somnolent - *Routine HEENT Exam Head: Present: normocephalic Eye: Present: EOMI, PERRL ENT: Present: mucous membranes dry - *Routine Neck Exam Present: supple. Absent: lymphadenopathy - *Routine Respiratory Exam Present: rhonchi, wheezes, diminished air movement - *Routine Cardiovascular Exam Present: RRR, murmur - *Routine Abdominal Exam Present: soft, normoactive bowel sounds. Absent: tenderness - *Routine Extremities Exam Absent: cyanosis, clubbing, edema; Extremities dry and contracted. No rash, distal extremities are cool - *Routine Skin Exam Present: warm. Absent: rash - *Routine Neurological Exam alert, not oriented, contracted extremities, minimally responsive to tactile stimuli Assessment and Plan (1) Hypernatremia Status: Acute Category: Medical Code(s): E87.0 - Hyperosmolality and hypernatremia (2) Sepsis Status: Acute Qualifiers: Sepsis type: sepsis due to unspecified organism Sepsis acute organ dysfunction status: with acute organ dysfunction Severe sepsis acute organ dysfunction type: acute renal failure Acute renal failure type: unspecified Severe sepsis shock status: without septic shock Qualified Code(s): A41.9 - Sepsis, unspecified organism; R65.20 - Severe sepsis without septic shock; N17.9 - Acute kidney failure, unspecified Category: Medical Code(s): A41.9 - Sepsis, unspecified organism (3) Acute respiratory failure with hypoxia Status: Acute Category: Medical Code(s): J96.01 - Acute respiratory failure with hypoxia (4) DAPHNE (acute kidney injury) Status: Acute Category: Medical Code(s): N17.9 - Acute kidney failure, unspecified (5) Moderate protein malnutrition Status: Chronic Category: Medical Code(s): E44.0 - Moderate protein-calorie malnutrition - Assessment and plan all Dx Assessment and Plan for all problems:: Sodium levels, kidney injury and overall metabolic status is improved with the administration of enteral fluids. This is not an ongoing tenable situation however given her terminal disease issues. Plan will be to give her 1 more night of fluids. Have asked the nursing staff to try to push p.o. fluids and food and then tomorrow plan to [facility] back [facility] for [facility]hospice care. Hopefully the family will be on board with this,
[2021-01-31 15:51] LABS: Microscopic,Cath URINE MICROSCOPIC (MICROSCOPIC)
[2021-01-31 16:04] LABS: Appearance,Urine/Cath CLEAR (Clear); Bilirubin,Cath Negative (Negative); Blood, Urine/Cath 3+ (Negative); Color,Urine/Cath YELLOW (Yellow); Glucose,Urine/Cath (UA) Negative (Negative); Ketones,Urine/Cath Negative (Negative); Leukocyte Esterase,Cath 1+ (Negative); Nitrate,Cath Negative (Negative); Protein,Urine/Cath 1+ (Negative); Urobilinogen,Cath 0.2 EU/dl (0.2)
[2021-01-31 16:23] LABS: Squamous Epithelial Ur./Cath Occasional #/hpf (0-5)
[2021-01-31 18:44] LABS: Anion Gap 2.2 mEq/L (5-15); Blood Urea Nitrogen 19 mg/dl (7-17); Calcium 8.9 mg/dl (8.4-10.2); Carbon Dioxide 34 mmol/L (22.0-30.0); Creatinine Clearance Estimated 34 mL/min (50-200); Estimated Glomerular Filt Rate 70 ml/min (>60); GFR (African American) 84 ML/MIN (>60); Glucose 75 mg/dl (74-100); Potassium 3.2 mmoL/L (3.5-5.1)
[2021-01-31 18:46] LABS: Chloride 127 mmol/L (98-107); Sodium 160 mmol/L (136-145)
--- NOTE | 2021-01-31 18:48 | PC.NURSE ---
MD Darling notified of critical lab values. Sodium 160, Chloride 127. No further orders at this time
[2021-02-01 05:00] VITALS: BMI 18.4
--- NOTE | 2021-02-01 05:46 | PC.NURSE ---
pt admitted 12/5 pm, pt awake most of the night, denies any abdominal pain through the night, axo and pleasant, ambulates with walker to BR with assist. VSS, no issues through the night
--- NOTE | 2021-02-01 07:38 | PC.NURSE ---
pt more alert, still nonverbal, iv patent to left foot, VSS, f/c to bsd, no issues through the night.
[2021-02-01 08:00] VITALS: BP 105/79; PULSE 56; RESP 17; TEMP 36.4; O2SAT 100
--- NOTE | 2021-02-01 08:43 | HMH.ACPN2 ---
Internal Medicine - PN: Subj *Date: 02/01/21 *Time: 08:43 Interval history: Patient is much more alert today. Responsive. Electrolytes have continued to improve. Patient is eating small amounts of sweet puddings and applesauce. Exam Vital signs and Labs for Last 24 Hours: Temp Pulse Resp BP Pulse Ox 97.6 F 56 L 17 105/79 L 100 02/01/21 08:00 02/01/21 08:00 02/01/21 08:00 02/01/21 08:00 02/01/21 08:00 Laboratory Results - last 24 hr 01/31/21 12:16: Urine Color Yellow, Urine Appearance Clear, Urine pH 8.0, Ur Specific [place] 1.020, Urine Protein 1+, Urine Glucose (UA) Negative, Urine Ketones Negative, Urine Blood 3+, Urine Nitrate Negative, Urine Bilirubin Negative, Urine Urobilinogen 0.2, Ur Leukocyte Esterase 1+ A, Urine RBC 10-20, Urine WBC 5-10, Ur Squamous Epith Cells Occasional, Urine Bacteria None 01/31/21 18:20: Sodium 160 H*, Potassium 3.2 L, Chloride 127 H, Carbon Dioxide 34 H, Anion Gap 2.2 L, BUN 19 H D, Creatinine 0.80, Estimated Creat Clear 34, Estimated GFR 70, Est GFR ( Amer) 84, Glucose 75, Calcium 8.9 I & O for Last 24 hours: Intake & Output 01/29/21 01/30/21 01/31/21 02/01/21 11:59 11:59 11:59 11:59 Intake Total 450 / 450 1778 / 1778 798 / 798 Output Total 100 / 100 850 / 850 1150 / 1150 Balance 350 / 350 1778 / 1778 -850 / -850 -352 / -352 Weight 94 lb 9.6 oz 107 lb 4.8 oz 98 lb 1.6 oz 100 lb 6.4 oz Microbiology Reports for the Last 24 Hours: Microbiology 01/28/21 09:00 Blood Blood Culture - Preliminary Staphylococcus hominis 01/28/21 09:00 Blood Blood Culture - Preliminary Narrative: Patient is alert. Minimally responsive to commands. Makes good eye contact. Nonverbal. Rhonchi in both lung marin. Abdomen soft. Heart rate regular. No extremity edema or clubbing. Contracted and neurologic exam unchanged as previously noted. Oropharynx dry but clear. Assessment and Plan (1) Hypernatremia Status: Acute Category: Medical Code(s): E87.0 - Hyperosmolality and hypernatremia (2) Sepsis Status: Acute Qualifiers: Sepsis type: sepsis due to unspecified organism Sepsis acute organ dysfunction status: with acute organ dysfunction Severe sepsis acute organ dysfunction type: acute renal failure Acute renal failure type: unspecified Severe sepsis shock status: without septic shock Qualified Code(s): A41.9 - Sepsis, unspecified organism; R65.20 - Severe sepsis without septic shock; N17.9 - Acute kidney failure, unspecified Category: Medical Code(s): A41.9 - Sepsis, unspecified organism (3) Acute respiratory failure with hypoxia Status: Acute Category: Medical Code(s): J96.01 - Acute respiratory failure with hypoxia (4) DAPHNE (acute kidney injury) Status: Acute Category: Medical Code(s): N17.9 - Acute kidney failure, unspecified (5) Moderate protein malnutrition Status: Chronic Category: Medical Code(s): E44.0 - Moderate protein-calorie malnutrition (6) Bacteremia due to Staphylococcus Status: Acute Category: Medical Code(s): R78.81 - Bacteremia; B95.8 - Unspecified staphylococcus as the cause of diseases classified elsewhere - Assessment and plan all Dx Assessment and Plan for all problems:: 1. Hypernatremia with kidney injury-improving. 2. Staph hominis sepsis. Plan will be to place central line if patient's daughter consents with vancomycin therapy, check blood cultures tomorrow. Consider transfer back to [facility] on vancomycin if this goes well and vancomycin dose tolerated. 3. Schizoaffective disorder with terminal dementia-continue hospice care once vancomycin course finished.
--- NOTE | 2021-02-01 09:17 | HMH.PHACONS ---
- Pharmacy Consult Date: 02/01/21 Time: 09:18 Referring provider: DR. MENDEZ Reason for Consult:: Pharmacokinetic dosing service Objective: Patient: Floor: Age: 75 yo Serum creatinine: 0.80 mg/dL Height: 61.8 Inches Weight (kg): 45.5 Assessment: IBW (kg): 49.64 Dosing wt(kg): 45.5 Estimated Creatinine clearance (ml/min): 43.0 CRCL method: Cockcroft and Gault using ibw(default). Drug selected: Vancomycin Loading dose (mg): Vd (liters): 31.8 (factor used: 0.7 L/kg) Roosevelt (hr-1): 0.040 Half life (hrs): 17.33 CLvanco=?? 1.272 L/hr Recommended dose: 750 mg Interval: 24 hrs Infusion time (hrs): 2.0 Predicted peak (mcg/mL): 36.7 Predicted trough (mcg/mL): 15.22 Total body weight is being used for vancomycin dosing. Recommendations: Give Vancomycin 750 mg q 24 hrs with an expected Cpeak of 36.7 mcg/ml and an expected Ctrough of 15.22 mcg/ml AUC 0-24 /KELSEY Data: KELSEY 0.5 mcg/mL:?? AUC/KELSEY:? 1179.2 KELSEY 1.0 mcg/mL:?? AUC/KELSEY:? 589.6 --------- KELSEY 1.5 mcg/mL:?? AUC/KELSEY:? 393.1 KELSEY 2.0 mcg/mL:?? AUC/KELSEY:? 294.8 Thank you for the consult, will continue to follow. -GILMA JOHNSON PHARMD Allergies and ADEs:: Allergies Allergy/AdvReac Type Severity Reaction Status Date / Time No Known Allergies Allergy Verified 12/24/20 14:55 Home Medications:: Home Medications Medication Instructions Recorded Confirmed Type Acetaminophen [Tylenol Extra 1,000 mg PO BID 12/24/20 01/28/21 History Strength] Famotidine [Pepcid 20mg Tablet] 20 mg PO DAILY 12/24/20 01/28/21 History Hyoscyamine Sulfate 0.125 mg PO BID 12/24/20 01/28/21 History Loratadine [Claritin 10mg 10 mg PO DAILY 12/24/20 01/28/21 History Tablet] ondansetron HCL [Zofran 4mg Tab*] 4 mg PO Q8HP PRN 12/24/20 01/28/21 History polyethylene glycoL 3350 [Miralax 17 gm PO DAILYP PRN 12/24/20 01/28/21 History Powder] Aspirin [Aspirin 81mg chewable 81 mg PO DAILY 12/25/20 01/28/21 History tab] Polyvinyl Alcohol/Povidone/Pf 1 drp OP QID 01/28/21 01/28/21 History [Refresh Classic Eye Drops] Height: 1.57 m Weight: 45.541 kg Laboratory Results:: Laboratory Results - last 24 hr 01/31/21 12:16: Urine Color Yellow, Urine Appearance Clear, Urine pH 8.0, Ur Specific [place] 1.020, Urine Protein 1+, Urine Glucose (UA) Negative, Urine Ketones Negative, Urine Blood 3+, Urine Nitrate Negative, Urine Bilirubin Negative, Urine Urobilinogen 0.2, Ur Leukocyte Esterase 1+ A, Urine RBC 10-20, Urine WBC 5-10, Ur Squamous Epith Cells Occasional, Urine Bacteria None 01/31/21 18:20: Sodium 160 H*, Potassium 3.2 L, Chloride 127 H, Carbon Dioxide 34 H, Anion Gap 2.2 L, BUN 19 H D, Creatinine 0.80, Estimated Creat Clear 34, Estimated GFR 70, Est GFR ( Amer) 84, Glucose 75, Calcium 8.9 Medical History: Reports:: Atherosclerotic Heart Disease, Cancer (LARGE INTESTINE), Coronary Artery Disease, Hyperlipidemia, Myocardial Infarction Denies:: Diabetes Mellitus Type 1, Diabetes Mellitus Type 2 Assessment and Plan (1) Hypernatremia Status: Acute Category: Medical Code(s): E87.0 - Hyperosmolality and hypernatremia (2) Sepsis Status: Acute Qualifiers: Sepsis type: sepsis due to unspecified organism Sepsis acute organ dysfunction status: with acute organ dysfunction Severe sepsis acute organ dysfunction type: acute renal failure Acute renal failure type: unspecified Severe sepsis shock status: without septic shock Qualified Code(s): A41.9 - Sepsis, unspecified organism; R65.20 - Severe sepsis without septic shock; N17.9 - Acute kidney failure, unspecified Category: Medical Code(s): A41.9 - Sepsis, unspecified organism (3) Acute respiratory failure with hypoxia Status: Acute Category: Medical Code(s): J9
[2021-02-01 11:44] LABS: Coronavirus 19, PCR Not Detected (NotDetected); Influenza A, PCR Not Detected (NotDetected); Influenza B, PCR Not Detected (NotDetected)
--- NOTE | 2021-02-01 11:52 | HMH.DCSUM ---
General - General Admission date:: 01/28/21 Discharge date: 02/01/21 HPI HPI: 75-year-old female, long-term resident of [facility] with schizophrenia, severe dementia and chronic confusion/obtunded mental status who over the past 4 to 5 weeks has had recurrent aspiration episodes treated with antibiotics. Her condition declined to the point where she was enrolled in hospice care but family had not yet made a decision about CODE STATUS and this morning she was found to be febrile, obtunded, hypotensive and tachycardic and transferred to emergency department. In the emergency department she met criteria for sepsis. She was administered fluids, IV antibiotics and transferred to floor in poor condition. Hospital Course Hospital Course: Patient was admitted to hospital. Blood and urine cultures were obtained. They were initially negative but this morning returned positive for staphylococcal hominis infection. Initially at her hospitalization she was a full CODE STATUS but in discussion with family and our nursing staff and care management staff, her daughter elected to pursue DNR status which I certainly agree with given the patient's recurrent renal dysfunction, dehydration issues, obtunded mental status and noncommunicative status. Hospice care is ongoing at the halfway. After the culture results were returned we initially discussed with the daughter plans for possible central line placement with ongoing IV vancomycin, but after consideration of the possible risk, lack of benefit in extending life or quality of life for her mother the daughter decided to forego antibiotics and central line placement and essentially pursue comfort and palliative care at the halfway. Again, I agree with this decision and think it is the right call. As a result she will be transferred back to [facility] today. She will have no IV. She will have a Moran catheter for end-of-life care and comfort. Comfort meds will be instituted with Roxanol and Ativan. She will have comfort feedings as indicated, no dietary restrictions. Family should be allowed to visit based on comfort/end-of-life care measures. Objective Vital signs: Temp Pulse Resp BP Pulse Ox 97.6 F 56 L 17 105/79 L 100 02/01/21 08:00 02/01/21 08:00 02/01/21 08:00 02/01/21 08:00 02/01/21 08:00 no acute distress, moderate distress, thin, cachectic, chronically ill appearing, disheveled - *Routine HEENT Exam Head: Present: normocephalic Eye: Present: EOMI, PERRL ENT: Present: mucous membranes dry - *Routine Neck Exam Present: supple - *Routine Respiratory Exam Present: CTA bilaterally - *Routine Cardiovascular Exam Present: RRR - *Routine Abdominal Exam Present: soft, normoactive bowel sounds. Absent: tenderness - *Routine Extremities Exam Absent: cyanosis, clubbing, edema - *Routine Skin Exam Present: warm. Absent: rash - *Routine Neurological Exam Nonverbal, mildly responsive. Neurologic contractures noted. - Detailed Eye Exam Eyelids: Bilateral normal inspection Results Labs on day of discharge: Labs from last 24 hours 01/31/21 01/31/21 18:20 12:16 Sodium 160 H* Potassium 3.2 L Chloride 127 H Carbon Dioxide 34 H Anion Gap 2.2 L BUN 19 H D Creatinine 0.80 Estimated Creat Clear 34 Estimated GFR 70 Est GFR ( Amer) 84 Glucose 75 Calcium 8.9 Urine Color Yellow Urine Appearance Clear Urine pH 8.0 Ur Specific [place] 1.020 Urine Protein 1+ Urine Glucose (UA) Negative Urine Ketones Negative Urine Blood 3+ Urine Nitrate Negative Urine Bilirubin Negative Urine Urobilinogen 0.2 Ur Leukocyte Esterase 1+ A Urine RBC 10-20 Urine WBC 5-10 Ur Squamous Epith Cells Occasional Urine Bacteria None Preliminary micro results at discharge 01/28/21 09:00 Blood Culture - Preliminary Blood Gram Positive Kiara
--- NOTE | 2021-02-01 14:38 | PC.NURSE ---
Called report to Sadaf @ [facility]
== END 2021-02-01 15:00 | disposition hospice, inpatient (51) | DRG 871 ==
LOC: ER 09:15 → 2ND 10:10
PROVIDERS: Internal Medicine Adolescent Medicine; Admitting Provider Internal Medicine Adolescent Medicine; Emergency Provider Emergency Medicine; PCP Internal Medicine Adolescent Medicine; Visit Provider Internal Medicine Adolescent Medicine
DX: A41.2 Sepsis due to unspecified staphylococcus (principal); J96.01 Acute respiratory failure with hypoxia; N17.9 Acute kidney failure, unspecified; E87.0 Hyperosmolality and hypernatremia; E44.0 Moderate protein-calorie malnutrition; Z68.1 Body mass index [BMI] 19.9 or less, adult; R65.20 Severe sepsis without septic shock; Z20.822 Contact with and (suspected) exposure to COVID-19; F20.9 Schizophrenia, unspecified; F03.90 Unspecified dementia, unspecified severity, without behavioral disturbance, psychotic disturbance, mood disturbance, and anxiety; I25.10 Atherosclerotic heart disease of native coronary artery without angina pectoris; E11.9 Type 2 diabetes mellitus without complications; E78.5 Hyperlipidemia, unspecified; I25.2 Old myocardial infarction; Z85.038 Personal history of other malignant neoplasm of large intestine; Z66 Do not resuscitate; Z74.01 Bed confinement status
CPT/HCPCS: 36415; 71045; 80048; 80053; 81001; 83605; 83735; 85007; 85025; 87040; 87077; 87086; 87186; 96365; 96367; 99284; C9803; J3370; U0003; U0005